=== PATIENT | female | born 1955 | race Caucasian/White ===

== ENCOUNTER → 2016-07-14 | Outpatient (CLI) | payer BC ==
[2016-07-14 15:37] LABS: CH 32.6; CHCM 33.6; HCT 42.8 % (34.0-46.0); HDW 2.71; HGB 13.9 gm/dL (11.4-16.0); MCH 31.6 pg (25.0-35.0); MCHC 32.4 g/dL (31.0-37.0); MCV 97.6 fL (80.0-100.0); Mean Platelet Volume 6.6; RBC 4.39 m/uL (3.80-5.40); RDW 13.9 % (11.5-15.5); WBC 6.3 k/uL (3.8-10.6)
[2016-07-14 15:51] LABS: ALT 46 U/L (9-52); AST 26 U/L (14-36); Alkaline Phosphatase 76 U/L (38-126); Amylase 43 U/L (30-110); Anion Gap 9 mmol/L; Blood Urea Nitrogen 15 mg/dL (7-17); Calcium 9.2 mg/dL (8.4-10.2); Carbon Dioxide 23 mmol/L (22-30); Chloride 108 mmol/L (98-107); Glucose 101 mg/dL (74-99); Non-African American GFR(MDRD) 59 (>60 ml/min/1.73 sqM); Potassium 3.5 mmol/L (3.5-5.1); Sodium 140 mmol/L (137-145); Total Bilirubin 0.9 mg/dL (0.2-1.3); Total Protein 7.1 g/dL (6.3-8.2)
== END | disposition home or self-care (01) ==
LOC: LABWHC1 15:15
PROVIDERS: ATTEND Family Medicine
DX: K56.7 Ileus, unspecified (principal)
CPT/HCPCS: 36415; 80053; 82150; 83690; 85027

== ENCOUNTER → 2016-07-14 | Outpatient (CLI) | payer BC ==
--- NOTE | 2016-07-14 15:49 | XR ---
EXAMINATION TYPE: XR abdomen complete w decub DATE OF EXAM: 07/14/2016 3:44 PM COMPARISON: NONE HISTORY: Generalized abdominal pain doubling over in pain central TECHNIQUE: Upright supine and left lateral decubitus views of the abdomen are obtained. FINDINGS: Nonspecific bowel gas is present within small bowel loops as well as the colon. On upright views there are multiple air-fluid levels present. No suspicious differential air-fluid levels are pr esent. No mass effect is evident. Psoas margins are normal. No free air is identified. Organomegaly i s not evident. No suspicious calcifications are evident. IMPRESSION: 1. Nonspecific abdomen with multiple air-fluid levels within loops of bowel. Consider gastroenteriti s within the differential.
== END ==
LOC: RADXRMAIN 15:25
PROVIDERS: ATTEND Family Medicine
DX: R10.9 Unspecified abdominal pain (principal)
CPT/HCPCS: 74020

== ENCOUNTER → 2017-01-05 | Outpatient (CLI) | payer BC ==
--- NOTE | 2017-01-05 15:19 | US ---
EXAMINATION TYPE: US venous doppler duplex LE LT DATE OF EXAM: 01/05/2017 2:12 PM COMPARISON: NONE CLINICAL HISTORY: R60.0 LEFT PRETIBIAL REGION. Redness, itching left lower leg. Pain left leg. Left k nee cartilage fracture 04/22 SIDE PERFORMED: Left TECHNIQUE: The lower extremity deep venous system is examined utilizing real time linear array sonog eliot with graded compression, doppler sonography and color-flow sonography. VESSELS IMAGED: External Iliac Vein (EIV) Common Femoral Vein Deep Femoral Vein Greater Saphenous Vein * Femoral Vein Popliteal Vein Small Saphenous Vein * Proximal Calf Veins (* superficial vessels) Left Leg: No evidence of DVT Grayscale, color doppler, spectral doppler imaging performed of the deep veins of the left lower extr emity. There is normal flow, compressibility, vascular waveforms. IMPRESSION: No ultrasound evidence for acute DVT in the left lower extremity.
== END | disposition home or self-care (01) ==
LOC: RADUSWWP 13:39
DX: R60.0 Localized edema (principal)

== ENCOUNTER 2017-10-22 14:32 | Emergency (ER) | payer BC ==
[2017-10-22 14:46] VITALS: RESP 20
[2017-10-22] MEDS ORDERED: KETOROLAC 60 MG/2 ML VIAL IM STA (14:59)
--- NOTE | 2017-10-22 14:59 | ED ---
Extremity Problem HPI - General Chief complaint: Extremity Problem,Nontraumatic Stated complaint: Knee Pain Time Seen by Provider: 10/22/17 14:50 Source: patient Mode of arrival: wheelchair Limitations: no limitations - History of Present Illness Initial comments: This is 62 year female with past medical history of extensive right knee arthritis for which she follows Dr. Montelongo, patient has drainage of right knee effusion last month. Patient states that this morning she was with her 11:30 AM she notes a raised area that was tender to touch along the right calf along the medial aspect, addition she thought that she had increase right lower extremities swelling in comparison to baseline. The tenderness increased with weightbearing and with dorsi or plantar flexion of the ankle. Patient sates that since she has been suffering from right knee arthritis and had previous right ankle injury she has had chronic swelling of the right knee and of the right ankle. Her orthopedic doctor Dr. Montelongo states that she needs a total knee arthroplasty. She has an appointment with him tomorrow. However she was worried about a blood clot in the calf, due to increased swelling of the right leg in the raised area that she presented to the emergency department today. Upon arrival she is Stable, heart rate 80 with 100% oxygen saturation RA. Patient denies any new pain in the knee, erythema of the right knee joint, recent trauma or injury to the leg, recent travel on an airplane or extended time of immobilization, history of cancer, use of estrogen, paresthesias, numbness, tingling or loss sensation of right lower extremity, patient denies chest pain, shortness of breath, recent cough, hemoptysis. Patient denies any recent fever, chills, back pain, abdominal pain, nausea or vomiting, numbness or tingling, dysuria or hematuria, constipation or diarrhea, headaches or visual changes, or any other complaints. - Related Data Home Medications Medication Instructions Recorded Confirmed ALPRAZolam [Xanax] 1 mg PO Q8HR PRN 02/19/16 10/22/17 Atorvastatin [Lipitor] 40 mg PO HS 02/19/16 10/22/17 Citalopram Hydrobromide [CeleXA] 60 mg PO HS 02/19/16 10/22/17 Levothyroxine Sodium [Synthroid] 75 mcg PO DAILY 02/19/16 10/22/17 Topiramate [Topamax] 100 mg PO BID 02/19/16 10/22/17 ZOLMitriptan [Zomig] 5 mg PO DAILY PRN 02/19/16 10/22/17 buPROPion SR [Wellbutrin Sr] 150 mg PO BID 02/19/16 10/22/17 Albuterol Sulfate [Proventil Hfa] 1 - 2 puff INHALATION RT-Q6H PRN 10/22/17 Butalb/APAP/Caff 50-325-40Mg 1 tab PO DAILY PRN 10/22/17 10/22/17 [Fioricet 50-325-40] Omeprazole [PriLOSEC] 40 mg PO HS 10/22/17 10/22/17 Allergies Allergy/AdvReac Type Severity Reaction Status Date / Time No Known Allergies Allergy Verified 10/22/17 14:51 Review of Systems ROS Statement: Those systems with pertinent positive or pertinent negative responses have been documented in the HPI. ROS Other: All systems not noted in ROS Statement are negative. Constitutional: Denies: fever, chills ENT: Denies: ear pain, throat pain Respiratory: Denies: cough, dyspnea, wheezes, hemoptysis Cardiovascular: Denies: chest pain, palpitations, dyspnea on exertion, orthopnea Gastrointestinal: Denies: abdominal pain, nausea, vomiting, diarrhea, constipation Genitourinary: Denies: urgency, dysuria Musculoskeletal: Denies: back pain Skin: Reports: as per HPI Neurological: Denies: headache, weakness, numbness, paresthesias, confusion Past Medical History Past Medical History: Eye Disorder, Hyperlipidemia, Neurologic Disorder, Thyroid Disorder Additional Past Medical History / Comment(s): BILAT CATARACTS. MIGRAINES. PNUEMONIA History of Any Multi-Drug Resistant Organisms: None Reported Past Surgical History: Section, Hysterectomy, Tonsillectomy Additional Past Surgical History / Comment(s): COLONOSCOPY Past Anesthesia/Blood Transfusion Reactions: No Reported Reaction Past Psychological History: Anxiety, Depression Smoking Status: Never smoker Past Alcohol Use History: None Reported Past Drug Use History: None Reported - Past Family History Father Family Medical History: Cancer General Exam - General Exam Comments Initial Comments: General: The patient is awake and alert, in no distress, and does not appear acutely ill. Eye: Pupils are equal, round and reactive to light, extra-ocular movements are intact. No nystagmus. There is normal conjunctiva bilaterally. No signs of icterus. Ears, nose, mouth and throat: There are moist mucous membranes and no oral lesions. Neck: The neck is supple, there is no tenderness or JVD. Cardiovascular: There is a regular rate and rhythm. No murmur, rub or gallop is appreciated. Respiratory: Lungs are clear to auscultation, respirations are non-labored, breath sounds are equal. No wheezes, stridor, rales, or rhonchi. Gastrointestinal: [Soft, non-distended, non-tender abdomen without masses or organomegaly noted. There is no rebound or guarding present. No CVA tenderness. Bowel sounds are unremarkable.] Musculoskeletal: Normal ROM, no tenderness of the right knee. Strength 5/5 of the right knee join. Sensation intact of the rt lower extremity equally b/l. DP pulses equal bilaterally 2+. Neurological: A&O x 3. CN II-XII intact, There are no obvious motor or sensory deficits. Coordination appears grossly intact. Speech is normal. Skin: Skin is warm and dry and no rashes or lesions are noted. There is no obvious raised area of the right medial calf upon examination, no evidence of erythema, pt is tender to palpation over the right medial posterior calf. Positive Serafin. Full range of motion and strength of the ankle. Psychiatric: Cooperative, appropriate mood & affect, normal judgment. Limitations: no limitations Course Vital Signs 10/22/17 10/22/17 14:44 16:30 Temperature 96.5 F L 96.4 F L Pulse Rate 80 69 Respiratory 20 20 Rate Blood Pressure 144/71 116/64 O2 Sat by Pulse 100 99 Oximetry Medical Decision Making - Medical Decision Making 62-year-old female with past medical history of extensive right knee arthritis for which she follows with cyber security specialist Dr. Montelongo. Patient was worried about a possible right lower cavity blood clot. Ultrasound was obtained of the right lower extremity- this returned negative. Due to history and patient denying any changes in her chronic right knee pain, no new trauma or fall, vital signs within normal limits, and negative duplex ultrasound of the right lower extremity I have low suspicion for DVT, acute fracture or process. I discussed the case with Dr. Canales the case in detail. At this time we do feel patient is stable for discharge with f/u with Dr. Montelongo tomorrow as scheduled. Patient was instructed to return to the emergency department if symptoms worsen or change. Patient is happy with plan and is ready to be discharged. Patient discharged in stable condition. Disposition Clinical Impression: Pain in right lower leg Disposition: HOME SELF-CARE Condition: Good Instructions: Leg Pain (ED) Additional Instructions: Please follow-up with Dr. Montelongo as discussed. Please return to emergency room if the symptoms increase or worsen or for any other concerns. Is patient prescribed a controlled substance at d/c from ED?: No Referrals: Kennedy Nj DO [Primary Care Provider] - 1-2 days Time of Disposition: 16:30
--- NOTE | 2017-10-22 16:02 | US ---
EXAMINATION TYPE: US venous doppler duplex LE LT DATE OF EXAM: 10/22/2017 3:48 PM COMPARISON: NONE CLINICAL HISTORY: Pain. SIDE PERFORMED: Left TECHNIQUE: The lower extremity deep venous system is examined utilizing real time linear array sonog eliot with graded compression, doppler sonography and color-flow sonography. VESSELS IMAGED: External Iliac Vein (EIV) Common Femoral Vein Deep Femoral Vein Greater Saphenous Vein * Femoral Vein Popliteal Vein Small Saphenous Vein * Proximal Calf Veins (* superficial vessels) Grayscale, color doppler, spectral doppler imaging performed of the deep veins of the left lower extr emity. There is normal flow, compressibility, vascular waveforms. Left Leg: Negative for DVT IMPRESSION: No sonographic evidence of deep venous thrombosis within the left lower extremity.
[2017-10-22 16:31] VITALS: BP 116/64; PULSE 69; TEMP 96.4
== END 2017-10-22 16:34 | disposition home or self-care (01) ==
LOC: EC 14:32
DX: M79.661 Pain in right lower leg (principal); G89.29 Other chronic pain; M25.561 Pain in right knee; E78.5 Hyperlipidemia, unspecified; E07.9 Disorder of thyroid, unspecified; F32.9 Major depressive disorder, single episode, unspecified; Z86.69 Personal history of other diseases of the nervous system and sense organs; Z79.899 Other long term (current) drug therapy
CPT/HCPCS: 96372; 99283

== ENCOUNTER 2018-10-21 18:14 | Emergency (ER) | payer MEDICARE, BC ==
[2018-10-21 18:50] VITALS: BP 118/78; PULSE 63; RESP 18; TEMP 98.3
--- NOTE | 2018-10-21 20:07 | ED ---
Extremity Problem HPI - General Source: patient Mode of arrival: ambulatory Limitations: no limitations <Galdino Benson - Last Filed: 10/21/18 21:30> <Uvaldo Kc - Last Filed: 10/21/18 22:05> - General Chief complaint: Extremity Problem,Nontraumatic Stated complaint: Poss DVT Time Seen by Provider: 10/21/18 19:11 - History of Present Illness Initial comments: Patient is 63-year-old female presents emergency Department with left leg pain. Patient reports she had a meniscal repair approximately one week ago when today was her second day palpation physical therapy. Patient reports when she applied warm compresses to her left lower leg she developed sudden onset of pain. Patient reports she was sent to emergency department by the equal opportunity specialist who is suspecting a possible DVT. Patient reports her last Doppler ultrasound for DVT was a false negative. Patient does have a history of previou s DVTs. Patient does report pain along the posterior aspect of the left lower leg. Patient also reports mild swelling in the region as well. Patient does report taking [place] approximately 1 hour ago prior comment to the emergency department. Patient reports the pain is exacerbated with dorsiflexion and alleviated at rest. Patient denies chest tightness, shortness of breath, hemoptysis, recent chemotherapy or exogenous estrogen use. (Galdino Benson) - Related Data Home Medications Medication Instructions Recorded Confirmed ALPRAZolam [Xanax] 1 mg PO Q8HR PRN 02/19/16 10/22/17 Atorvastatin [Lipitor] 40 mg PO HS 02/19/16 10/22/17 Citalopram Hydrobromide [CeleXA] 60 mg PO HS 02/19/16 10/22/17 Levothyroxine Sodium [Synthroid] 75 mcg PO DAILY 02/19/16 10/22/17 Topiramate [Topamax] 100 mg PO BID 02/19/16 10/22/17 ZOLMitriptan [Zomig] 5 mg PO DAILY PRN 02/19/16 10/22/17 buPROPion SR [Wellbutrin Sr] 150 mg PO BID 02/19/16 10/22/17 Albuterol Sulfate [Proventil Hfa] 1 - 2 puff INHALATION RT-Q6H PRN 10/22/17 10/22/17 Butalb/APAP/Caff 50-325-40Mg 1 tab PO DAILY PRN 10/22/17 10/22/17 [Fioricet 50-325-40] Omeprazole [PriLOSEC] 40 mg PO HS 10/22/17 10/22/17 Previous Rx's Medication Instructions Recorded Apixaban [Eliquis Starter Pack 0 mg PO DIRECTED 30 Days #1 pack 10/21/18 (for VTE)] Allergies Allergy/AdvReac Type Severity Reaction Status Date / Time No Known Allergies Allergy Verified 10/22/17 14:51 Review of Systems ROS Other: All systems not noted in ROS Statement are negative. <Galdino Benson - Last Filed: 10/21/18 21:30> ROS Other: All systems not noted in ROS Statement are negative. <Uvaldo Kc - Last Filed: 10/21/18 22:05> ROS Statement: Those systems with pertinent positive or pertinent negative responses have been documented in the HPI. Past Medical History Past Medical History: Deep Vein Thrombosis (DVT), Eye Disorder, Hyperlipidemia, Neurologic Disorder, Thyroid Disorder Additional Past Medical History / Comment(s): BILAT CATARACTS. MIGRAINES History of Any Multi-Drug Resistant Organisms: None Reported Past Surgical History: Section, Hernia Repair, Hysterectomy, Orthopedic Surgery, Tonsillectomy Additional Past Surgical History / Comment(s): COLONOSCOPY, knee Past Anesthesia/Blood Transfusion Reactions: No Reported Reaction Past Psychological History: Anxiety, Depression Smoking Status: Never smoker Past Alcohol Use History: None Reported Past Drug Use History: None Reported - Past Family History Father Family Medical History: Cancer <Galdino Benson - Last Filed: 10/21/18 21:30> General Exam Limitations: no limitations General appearance: alert, in no apparent distress Head exam: Present: atraumatic, normocephalic, normal inspection Eye exam: Present: normal appearance, PERRL, EOMI Pupils: Present: normal accommodation ENT exam: Present: normal exam, normal oropharynx, mucous membranes moist, TM's normal bilaterally, normal external ear exam Neck exam: Present: normal inspection, full ROM Respiratory exam: Present: normal lung sounds bilaterally Cardiovascular Exam: Present: regular rate, normal rhythm, normal heart sounds Extremities exam: Present: normal inspection, tenderness, normal capillary refill, joint swelling (Left knee swelling), calf tenderness (Positive Homans on the left leg), other (+2 dorsalis pedis and posterior tibialis bilaterally). Absent: full ROM (Limited range of motion due to recent meniscal repair procedure) Back exam: Present: normal inspection, full ROM Neurological exam: Present: alert, oriented X3 Psychiatric exam: Present: normal affect, normal mood Skin exam: Present: warm, intact, normal color <Galdino Benson - Last Filed: 10/21/18 21:30> Course Vital Signs 10/21/18 18:46 Temperature 98.3 F Pulse Rate 63 Respiratory 18 Rate Blood Pressure 118/78 O2 Sat by Pulse 100 Oximetry Medical Decision Making <Galdino Benson - Last Filed: 10/21/18 21:30> <Uvaldo Kc - Last Filed: 10/21/18 22:05> - Medical Decision Making Patient is a 63-year-old male presenting to emergency Department with leg pain. Venous Doppler of the left lower extremity was obtained. Imaging results indicate a 41.5 cm popliteal cyst. The deep femoral vein was not able to be fully compressed so at this time a nonocclusive thrombus cannot be ruled out. Rest of imaging is unremarkable. Considering the patient's previous history for DVTs she will be treated accordingly. Patient was given the option to stay for inpatient treatment with heparin or be discharged with a liquids. Patient states that she has an appointment on the Dr. Loyd tomorrow and she wants to be discharged. Patient was given 10 mg of Eliquis and will be discharged with a starter pack. Strict return parameters were thoroughly discussed with patient who is understanding and agreeable. also examine the patient and is in agreement with the treatment plan. (Galdino Benson) I saw this patient in conjunction with the physician certified ophthalmic assistant. I performed independent history and physical exam. Agree with case management. Case also discussed with Dr. Nj and patient will follow-up to ensure that there is improvement. (Uvaldo Kc) Disposition Is patient prescribed a controlled substance at d/c from ED?: No Time of Disposition: 21:34 <Galdino Benson - Last Filed: 10/21/18 21:30> <Uvaldo Kc - Last Filed: 10/21/18 22:05> Clinical Impression: Lower extremity pain, posterior Disposition: HOME SELF-CARE Condition: Stable Additional Instructions: Please take prescribed medication as directed. Please follow-up with a vascular surgeon. Please return to emergency department if symptoms worsen. Prescriptions: Apixaban [Eliquis Starter Pack (for VTE)] 0 mg PO DIRECTED 30 Days #1 pack Referrals: Kennedy Nj DO [Primary Care Provider] - 1-2 days
--- NOTE | 2018-10-21 21:01 | US ---
EXAMINATION TYPE: US venous doppler duplex LE LT DATE OF EXAM: 10/21/2018 8:48 PM COMPARISON: US CLINICAL HISTORY: Pain. Knee surgery 10/15/18. Pain. Hx DVT. Pt takes baby aspirin. SIDE PERFORMED: Left TECHNIQUE: The lower extremity deep venous system is examined utilizing real time linear array sonog eliot with graded compression, doppler sonography and color-flow sonography. VESSELS IMAGED: External Iliac Vein (EIV) Common Femoral Vein Deep Femoral Vein Greater Saphenous Vein * Femoral Vein Popliteal Vein Small Saphenous Vein * Proximal Calf Veins (* superficial vessels) Left Leg: Patient could not tolerate complete compression at the level of the proximal femoral vein and deep femoral vein. Unable to fully compress the deep femoral vein at this level (Prox femoral vei n did compress). Cannot rule out non-occlusive thrombus in deep femoral vein. No evidence of DVT in o ther remaining vessels imaged from proximal calf veins to EIV. Hypoechoic area seen medial left knee measurin.1 x 2.8 x 1.5 cm. IMPRESSION: There is 4 x 1.5 cm popliteal cyst. No definite evidence for deep venous thrombosis.
[2018-10-21] MEDS ORDERED: APIXABAN 5 MG TAB PO STA (21:23)
== END 2018-10-21 22:00 | disposition home or self-care (01) ==
LOC: EC 18:14
CPT/HCPCS: 99283

== ENCOUNTER 2019-08-30 10:33 | Emergency (ER) | payer MEDICARE, BC ==
[2019-08-30 10:45] VITALS: BP 113/64; PULSE 96; RESP 18; TEMP 98.7
--- NOTE | 2019-08-30 11:06 | ED ---
General Adult HPI - General Chief complaint: Extremity Injury, Lower Stated complaint: blood clot Time Seen by Provider: 08/30/19 10:46 Source: patient Mode of arrival: ambulatory Limitations: no limitations - History of Present Illness Initial comments: Patient is 64-year-old female with history of DVT presenting to the emergency department with a chief complaint of a blood clot. He states due to her history of DVTs, she suspecting a DVT in her left lower extremity. States it typically starts off as a rash and swelling along with pain in the medial and anterior aspect. Denies any chest pain or shortness of breath. States she is currently not taking blood thinners or antiplatelets. States after her most recent DVT, she was started on Eliquis but was tapered off of it. Denies any night sweats fevers or chills. No history of PE. - Related Data Home Medications Medication Instructions Recorded Confirmed ALPRAZolam [Xanax] 1 mg PO Q8HR PRN 02/19/16 10/22/17 Atorvastatin [Lipitor] 40 mg PO HS 02/19/16 10/22/17 Citalopram Hydrobromide [CeleXA] 60 mg PO HS 02/19/16 10/22/17 Levothyroxine Sodium [Synthroid] 75 mcg PO DAILY 02/19/16 10/22/17 Topiramate [Topamax] 100 mg PO BID 02/19/16 10/22/17 ZOLMitriptan [Zomig] 5 mg PO DAILY PRN 02/19/16 10/22/17 buPROPion SR [Wellbutrin Sr] 150 mg PO BID 02/19/16 10/22/17 Albuterol Sulfate [Proventil Hfa] 1 - 2 puff INHALATION RT-Q6H PRN 10/22/17 10/22/17 Butalb/APAP/Caff 50-325-40Mg 1 tab PO DAILY PRN 10/22/17 10/22/17 [Fioricet 50-325-40] Omeprazole [PriLOSEC] 40 mg PO HS 10/22/17 10/22/17 Previous Rx's Medication Instructions Recorded Apixaban [Eliquis Starter Pack 0 mg PO DIRECTED 30 Days #1 pack 10/21/18 (for VTE)] Cephalexin [Keflex] 500 mg PO Q6HR #28 cap 08/30/19 Allergies Allergy/AdvReac Type Severity Reaction Status Date / Time No Known Allergies Allergy Verified 08/30/19 10:45 Review of Systems ROS Statement: Those systems with pertinent positive or pertinent negative responses have been documented in the HPI. ROS Other: All systems not noted in ROS Statement are negative. Past Medical History Past Medical History: Deep Vein Thrombosis (DVT), Eye Disorder, Hyperlipidemia, Neurologic Disorder, Thyroid Disorder Additional Past Medical History / Comment(s): BILAT CATARACTS. MIGRAINES History of Any Multi-Drug Resistant Organisms: None Reported Past Surgical History: Section, Hernia Repair, Hysterectomy, Orthopedic Surgery, Tonsillectomy Additional Past Surgical History / Comment(s): COLONOSCOPY, knee Past Anesthesia/Blood Transfusion Reactions: No Reported Reaction Past Psychological History: Anxiety, Depression Smoking Status: Never smoker Past Alcohol Use History: None Reported Past Drug Use History: None Reported - Past Family History Father Family Medical History: Cancer General Exam Limitations: no limitations General appearance: alert, in no apparent distress Head exam: Present: atraumatic, normocephalic, normal inspection Eye exam: Present: normal appearance, PERRL, EOMI Pupils: Present: normal accommodation ENT exam: Present: normal exam, normal oropharynx, mucous membranes moist Neck exam: Present: normal inspection, full ROM Respiratory exam: Present: normal lung sounds bilaterally Cardiovascular Exam: Present: regular rate, normal rhythm, normal heart sounds Extremities exam: Present: full ROM, tenderness (Tenderness on the left calf.), normal capillary refill, pedal edema (+1 nonpitting), calf tenderness (Positive Homans sign lower extremity). Absent: normal inspection (Overlying cellulitic changes on the left lower extremity.), joint swelling Back exam: Present: normal inspection, full ROM Neurological exam: Present: alert, oriented X3 Psychiatric exam: Present: normal affect, normal mood Skin exam: Present: warm, dry, intact, normal color Course Vital Signs 08/30/19 10:40 Temperature 98.7 F Pulse Rate 96 Respiratory 18 Rate Blood Pressure 113/64 O2 Sat by Pulse 97 Oximetry Medical Decision Making - Medical Decision Making Patient is 64-year-old female with history of DVT presenting to the emergency department with a chief complaint of possible blood clot. I exam patient is a positive Homans sign along with left lower extremity swelling. There also appears to be a rash with overlying cytolytic changes which I suspect a cellulitis. There is erythema associated with it as well. Doppler ultrasound revealed a small size popliteal cyst but no signs of a DVT. Patient started on Keflex in the ED. Will be discharged with a seven-day course of Keflex. Advised the patient to take Benadryl to help with itching. I also luz elena a line along the demarcated borders and advised the patient to return to emergency department if the infection continues past the demarcated line. Return parameters thoroughly discussed with patient was up standing and agreeable. Case discussed with physician. Disposition Clinical Impression: Cellulitis of left leg, Left leg swelling, Left leg pain Disposition: HOME SELF-CARE Instructions (If sedation given, give patient instructions): Cellulitis (DC) Additional Instructions: Take prescribed medication as directed. Alternate between Tylenol and Motrin for pain control. Take Benadryl for itching. Return to emergency department if symptoms worsen. Prescriptions: Cephalexin [Keflex] 500 mg PO Q6HR #28 cap Is patient prescribed a controlled substance at d/c from ED?: No Referrals: Kennedy Nj DO [Primary Care Provider] - 1-2 days Time of Disposition: 13:05
--- NOTE | 2019-08-30 12:23 | US ---
EXAMINATION TYPE: US venous doppler duplex LE LT DATE OF EXAM: 08/30/2019 12:17 PM COMPARISON: Prior left lower extremity venous ultrasound October 21, 2018 CLINICAL HISTORY: r/o dvt, swelling, hx of dvt. SIDE PERFORMED: Left TECHNIQUE: The lower extremity deep venous system is examined utilizing real time linear array sonog eliot with graded compression, doppler sonography and color-flow sonography. VESSELS IMAGED: External Iliac Vein (EIV) Common Femoral Vein Deep Femoral Vein Greater Saphenous Vein * Femoral Vein Popliteal Vein Small Saphenous Vein * Proximal Calf Veins (* superficial vessels) Left Leg: Negative for DVT De La Torre's cyst measuring 2.4 x 1.7 x 1.5cm Grayscale, color doppler, spectral doppler imaging performed of the deep veins of the left lower extr emity. There is normal flow, compressibility, vascular waveforms. IMPRESSION: No ultrasound evidence for acute DVT in left lower extremity. Redemonstration of small s ize popliteal cyst towards end of study. No significant change from prior ultrasound.
[2019-08-30] MEDS ORDERED: CEPHALEXIN 500 MG CAP PO STA (13:04)
== END 2019-08-30 13:15 | disposition home or self-care (01) ==
LOC: EC 10:33
DX: L03.116 Cellulitis of left lower limb (principal); M79.89 Other specified soft tissue disorders; M71.22 Synovial cyst of popliteal space [Baker], left knee; F41.9 Anxiety disorder, unspecified; F32.9 Major depressive disorder, single episode, unspecified; E78.5 Hyperlipidemia, unspecified; Z79.890 Hormone replacement therapy; Z79.899 Other long term (current) drug therapy; Z86.718 Personal history of other venous thrombosis and embolism
CPT/HCPCS: 99283

== ENCOUNTER → 2020-08-10 | Outpatient (CLI) | payer MEDICARE ==
--- NOTE | 2020-08-13 08:52 | MM ---
Reason for exam: clinical finding. Last mammogram was performed 11 years and 2 months ago. History: Family history of breast cancer in brother at age 50. Indicated problem(s): palpable abnormality in the right breast. Physical Findings: Nurse did not find any significant physical abnormalities on exam. MG 3D Diag Mammo W/Cad NIYA Bilateral CC and MLO view(s) were taken. CC with magnification and LM with magnification view(s) were taken of the right breast. No prior studies available for comparison. The breast tissue is heterogeneously dense. This may lower the sensitivity of mammography. Finding: There are coarse heterogeneous, grouped/clustered calcifications in the lower inner quadrant, anterior, subareolar position of the right breast 3cm from the nipple. These results were verbally communicated with the patient and result sheet given to the patient on 08/10/20. ASSESSMENT: Incomplete: need additional imaging evaluation, BI-RAD 0 RECOMMENDATION: Ultrasound of the right breast. (palpable)
--- NOTE | 2020-08-13 08:55 | USB ---
Reason for exam: additional evaluation requested from abnormal screening. History: Family history of breast cancer in brother at age 50. US Breast Limited RT Right limited breast ultrasound including focal area of concern, retroareolar and axilla demonstrates a 0.5 x 0.5 x 0.4cm round, solid, hypoechoic lesion at 7 o'clock. Biopsy recommended. These results were verbally communicated with the patient and result sheet given to the patient on 08/10/20. ASSESSMENT: Suspicious, BI-RAD 4 RECOMMENDATION: Stereotactic core biopsy of the right breast. (right breast calcifications) Ultrasound core biopsy of the right breast. (7 o'clock) Called Dr. Nj' office with mammographic findings and has scheduled an appointment for the patient for 10/10/[address] Sethi. Steretactic core biopsy scheduled for 09/10/20 at 8:00. Ultrasound core biopsy scheduled for 09/17/20 at 1:00. PRELIMINARY REPORT CALLED AND FAXED TO DR. SETHI ON 08/13/20.
== END | disposition home or self-care (01) ==
LOC: RADMAMWWP 08:17
PROVIDERS: ATTEND Family Medicine
DX: R92.1 Mammographic calcification found on diagnostic imaging of breast (principal); N64.89 Other specified disorders of breast; Z80.3 Family history of malignant neoplasm of breast
CPT/HCPCS: 77066; 76642; G0279; 77062

== ENCOUNTER → 2020-09-10 | Day surgery (SDC) | payer MEDICARE ==
[2020-09-10 07:28] VITALS: RESP 16
[2020-09-10 08:55] VITALS: BP 116/74; PULSE 65; TEMP 98.5
--- NOTE | 2020-09-10 15:36 | MM ---
EXAMINATION TYPE: MG stereo VAD BX RT DATE OF EXAM: 09/10/2020 COMPARISON: 08/10/2020 CLINICAL HISTORY: 65-year-old female r92.8, abnormal mammogram TECHNIQUE: Stereotactic guided core biopsy of the right breast calcifications. FINDINGS: The procedure of stereotactic guided core biopsy was explained to the patient. Benefits, alternatives, and risks were discussed. An informed consent was then obtained. [facility] Shortness pathway was a medial approach. I performed the localization localization followed with the remainder of the procedure. A vacuum assisted biopsy gun was used to obtain 4 core samples. The patient tolerated the procedure well without any immediate complication. The patient was kept in the radiology department for short stay after the procedure and then discharged home in stable condition. Targeted calcifications are identified in specimen mammogram. Post biopsy mammogram shows the clip to appear in satisfactory position relative to the targeted area of concern on the preprocedure images at the 3 to 4:00 position anterior depth right breast. Mild associated hematoma formation on the lateral view. IMPRESSION: 1. SUCCESSFUL, UNCOMPLICATED STEREOTACTIC GUIDED CORE BIOPSY OF INDETERMINATE CALCIFICATIONS IN THE 3-4 o'clock right BREAST, FULL PATHOLOGY RESULTS TO FOLLOW. RECOMMENDATION: 1. Awaiting stereotactic core needle biopsy pathology results. 2. Awaiting ultrasound core needle biopsy of the 7:00 right breast palpable sonographic correlate to be performed next week. Pathology Results: Benign RIGHT BREAST, CORE BIOPSY: Fibrocystic change with fragmented benign cystic structures, benign cyst contents, parenchymal hemorrhage and mild periductal chronic inflammation. Negative for in situ or invasive malignancy. ADDENDUM REPORT The purpose of this addendum report is to state that focal microcalcifications were identified from the patient's right breast core biopsy. The remainder of the diagnostic findings remain unchanged. Recommendation Follow up mammogram of the left breast in 6 months. EUGENIA
== END ==
LOC: RADMAMWWP 07:04
PROVIDERS: ATTEND Surgery
DX: N60.11 Diffuse cystic mastopathy of right breast (principal); R92.8 Other abnormal and inconclusive findings on diagnostic imaging of breast
CPT/HCPCS: 88305; 19081; A4648; J2001

== ENCOUNTER → 2020-09-17 | Day surgery (SDC) | payer MEDICARE ==
[2020-09-17 12:30] VITALS: BP 114/78; PULSE 78; RESP 16; TEMP 98.9
--- NOTE | 2020-09-17 15:05 | USB ---
EXAMINATION TYPE: US biopsy breast VAD RT, MG diagnostic mammo RT wo CAD DATE OF EXAM: 09/17/2020 CLINICAL HISTORY: R92.8 Abnormal mammo. TECHNIQUE: Ultrasound guided core biopsy of right breast. COMPARISON: 08/10/2020 FINDINGS: The procedure of ultrasound guided core biopsy was explained to the patient. Benefits, alternatives, and risks were discussed. An informed consent was then obtained. The patient was placed in supine positioning for imaging and for the procedure. The overlying skin was prepped and draped in usual sterile fashion. Lidocaine buffered with bicarbonate was used as anesthetic into the skin and subcutaneous tissue up to area of concern in the right breast. A silverio was made with surgical scalpel. Under ultrasound guidance, a 12-gauge vacuum assisted biopsy gun device was used to obtain 3 core samples. The lesion was then no longer visible. Following this, a biopsy clip was placed in the lesion under direct sonographic guidance. The patient tolerated the procedure well without any immediate complication. The patient was kept in the radiology department for short stay after the procedure and then discharged home in stable condition. Postoperative right mammogram was performed which demonstrates a biopsy clip in the anterior right breast. IMPRESSION: Successful, uncomplicated ultrasound guided core biopsy of area of concern in the right breast, full pathology results to follow. Pathology Results: Benign RIGHT BREAST, 7:00, ULTRASOUND GUIDED CORE BIOPSY: Cyst wall with adjacent fat necrosis/scar and inflammation. Negative for malignancy. Recommendation Follow up mammogram and ultrasound of the right breast in 6 months. EUGENIA
== END ==
LOC: RADUSWWP 12:06
PROVIDERS: ATTEND Surgery
DX: N60.01 Solitary cyst of right breast (principal); R92.8 Other abnormal and inconclusive findings on diagnostic imaging of breast
CPT/HCPCS: 88305; 77065; 19083; A4648; J2001

== ENCOUNTER 2021-05-20 10:31 | Emergency (ER) | payer MEDICARE ==
[2021-05-20] MEDS ORDERED: LORazepam 2 MG/ML INJ IV STA (10:59)
[2021-05-20 11:05] VITALS: RESP 18; TEMP 97.8
[2021-05-20] MEDS ORDERED: LORazepam 2 MG/ML INJ IM STA (11:11)
--- NOTE | 2021-05-20 11:35 | US ---
EXAMINATION TYPE: US venous doppler duplex LE LT DATE OF EXAM: 05/20/2021 11:28 AM COMPARISON: Prior left lower extremity venous ultrasound August 30, 2019 CLINICAL HISTORY: pain. patient having panic attack, had total lt knee 2 weeks ago and has cramping/s pasms in her left calf, h/o dvt in left leg 3 years ago, on thinners SIDE PERFORMED: Left TECHNIQUE: The lower extremity deep venous system is examined utilizing real time linear array sonog eliot with graded compression, doppler sonography and color-flow sonography. VESSELS IMAGED: Common Femoral Vein Deep Femoral Vein Greater Saphenous Vein * Femoral Vein Popliteal Vein Small Saphenous Vein * Proximal Calf Veins (* superficial vessels) Left Leg: Negative for DVT unable to do compression imaging in thigh or behind knee because patien t could not tolerate any pressure. Good color flow with doppler noted throughout leg. Grayscale, color doppler, spectral doppler imaging performed of the deep veins of the left lower extr emity. There is normal flow, compressibility, vascular waveforms. IMPRESSION: Suboptimal study but No convincing ultrasound evidence for acute DVT in the left lower e xtremity.
[2021-05-20 11:59] VITALS: BP 131/73; PULSE 93
--- NOTE | 2021-05-20 12:10 | ED ---
Anxiety HPI - General Chief Complaint: Anxiety Stated Complaint: anxiety Time Seen by Provider: 05/20/21 10:52 Source: patient, EMS, RN notes reviewed Mode of arrival: EMS Limitations: no limitations - History of Present Illness Initial Comments: This a 66-year-old female presents emergency department via EMS from [facility] for panic attack. Patient started feeling very anxious, like her heart was racing, uneasiness. Patient states that she productive presents this morning. Patient was screaming, hyperventilating upon arrival EMS and which they did calm her down. She is patient's back but again started having symptoms emergency department she denies any pain she states that she is not crazy that she just forgot to take her Xanax. There is no nausea vomiting patient states that she had knee surgery two week ago. - Related Data Home Medications: Home Medications Medication Instructions Recorded Confirmed ALPRAZolam [Xanax] 1 mg PO Q8HR 02/19/16 09/17/20 Atorvastatin [Lipitor] 40 mg PO HS 02/19/16 09/17/20 Citalopram Hydrobromide [CeleXA] 60 mg PO HS 02/19/16 09/17/20 Levothyroxine Sodium [Synthroid] 75 mcg PO DAILY 02/19/16 09/17/20 Topiramate [Topamax] 100 mg PO BID 02/19/16 09/17/20 ZOLMitriptan [Zomig] 5 mg PO DAILY PRN 02/19/16 09/17/20 buPROPion SR [Wellbutrin Sr] 150 mg PO BID 02/19/16 09/17/20 Albuterol Sulfate [Proventil Hfa] 1 - 2 puff INHALATION RT-Q6H PRN 10/22/17 09/17/20 Butalb/APAP/Caff 50-325-40Mg 1 tab PO DAILY PRN 10/22/17 09/17/20 [Fioricet 50-325-40] Omeprazole [PriLOSEC] 40 mg PO HS 10/22/17 09/17/20 Allergies/Adverse Reactions: Allergies Allergy/AdvReac Type Severity Reaction Status Date / Time No Known Allergies Allergy Verified 09/17/20 12:16 Review of Systems ROS Statement: Those systems with pertinent positive or pertinent negative responses have been documented in the HPI. ROS Other: All systems not noted in ROS Statement are negative. Past Medical History Past Medical History: Deep Vein Thrombosis (DVT), Eye Disorder, Hyperlipidemia, Neurologic Disorder, Thyroid Disorder Additional Past Medical History / Comment(s): BILAT CATARACTS. MIGRAINES History of Any Multi-Drug Resistant Organisms: None Reported Past Surgical History: Section, Hernia Repair, Hysterectomy, Orthopedic Surgery, Tonsillectomy Additional Past Surgical History / Comment(s): COLONOSCOPY, knee Past Anesthesia/Blood Transfusion Reactions: No Reported Reaction Past Psychological History: Anxiety, Depression Smoking Status: Never smoker Past Alcohol Use History: None Reported Past Drug Use History: None Reported - Past Family History Father Family Medical History: Cancer Additional Family Medical History / Comment(s): colon cancer Brother(s) Family Medical History: Cancer Additional Family Medical History / Comment(s): breast General Exam General appearance: alert, in no apparent distress, anxious (Patient is very anxious, hyperventilating, getting carpopedal spasms) Eye exam: Present: normal appearance, PERRL, EOMI. Absent: scleral icterus, conjunctival injection, periorbital swelling ENT exam: Present: normal exam, normal oropharynx, mucous membranes moist Neck exam: Present: normal inspection, full ROM. Absent: tenderness, meningismus, lymphadenopathy Respiratory exam: Present: normal lung sounds bilaterally. Absent: respiratory distress, wheezes, rales, rhonchi, stridor Cardiovascular Exam: Present: regular rate, normal rhythm, normal heart sounds. Absent: systolic murmur, diastolic murmur, rubs, gallop, clicks Extremities exam: Present: other (Left leg swelling and tenderness) Neurological exam: Present: alert Psychiatric exam: Present: anxious Course Vital Signs 05/20/21 05/20/21 10:53 11:58 Temperature 97.8 F Pulse Rate 96 93 Respiratory 18 18 Rate Blood Pressure 129/98 131/73 O2 Sat by Pulse 100 97 Oximetry Medical Decision Making - Medical Decision Making Patient was very anxious upon arrival including hyperventilating, having carpopedal spasms. Patient was given Ativan which is significant helped. Patient did have ultrasound of the left leg as she had recent surgery, swelling and discomfort she was having cramping of her leg most likely related to hyperventilation though DVT was ruled out time. Patient is here with daughter and friend. Patient is diagnosis of panic attack I did offer further evaluation including labs, EKG patient declines. Patient will be discharged daughter agrees to this plan Disposition Clinical Impression: Panic attack Disposition: HOME SELF-CARE Condition: Stable Instructions (If sedation given, give patient instructions): Generalized Anxiety Disorder (ED) Additional Instructions: Please return to the Emergency Department if symptoms worsen or any other concerns. Is patient prescribed a controlled substance at d/c from ED?: No Referrals: Kennedy Nj DO [Primary Care Provider] - 1-2 days Time of Disposition: 12:10
== END 2021-05-20 12:27 | disposition home or self-care (01) ==
LOC: EC 10:31
DX: F41.0 Panic disorder [episodic paroxysmal anxiety] (principal); E78.5 Hyperlipidemia, unspecified; E07.9 Disorder of thyroid, unspecified; F32.A Depression, unspecified; Z86.718 Personal history of other venous thrombosis and embolism; Z90.710 Acquired absence of both cervix and uterus
CPT/HCPCS: 99284; 96372; 93971; J2060

== ENCOUNTER 2022-12-10 11:29 | Emergency (ER) | payer MEDICARE ==
[2022-12-10 11:41] VITALS: RESP 18
[2022-12-10] MEDS ORDERED: DIPH,PERTUS(ACELL)TETVAC-LF 0.5 ML VIAL IM ONE (11:44)
[2022-12-10] MEDS ORDERED: RX INFO: IV CONTRAST WAS GIVEN 1 EACH MISC MISCELLANE PRN (11:44)
[2022-12-10] MEDS ORDERED: HYDROmorphone 0.5 MG/0.5 ML SYRINGE IVP STA ×2 (11:44→14:22)
--- NOTE | 2022-12-10 12:10 | ED ---
General Adult HPI - General Chief complaint: Trauma Stated complaint: Fall,Swing Set Fell on her R side Time Seen by Provider: 12/10/22 11:33 Source: patient, RN notes reviewed, old records reviewed Mode of arrival: ambulatory Limitations: no limitations - History of Present Illness Initial comments: 67-year-old female presenting for evaluation of right shoulder and upper chest pain after a swing set fell on top of her. Patient was mowing the lawn, he got entangled in the chains of the swing set and pulled the swingset over on top of her. No loss conscious. No anticoagulation. No abdominal pain or lower extremity injury. Pain complaint is isolated to the right upper chest and right shoulder. Severity scale (1-10): 10 - Related Data Home Medications Medication Instructions Recorded Confirmed ALPRAZolam [Xanax] 1 mg PO Q8HR 02/19/16 05/20/21 Atorvastatin [Lipitor] 40 mg PO HS 02/19/16 05/20/21 Citalopram Hydrobromide [CeleXA] 60 mg PO HS 02/19/16 05/20/21 Levothyroxine Sodium [Synthroid] 75 mcg PO DAILY 02/19/16 05/20/21 Topiramate [Topamax] 100 mg PO BID 02/19/16 05/20/21 ZOLMitriptan [Zomig] 5 mg PO DAILY PRN 02/19/16 05/20/21 buPROPion SR [Wellbutrin Sr] 150 mg PO BID 02/19/16 05/20/21 Albuterol Sulfate [Proventil Hfa] 1 - 2 puff INHALATION RT-Q6H PRN 10/22/17 05/20/21 Butalb/APAP/Caff 50-325-40Mg 1 tab PO DAILY PRN 10/22/17 05/20/21 [Fioricet 50-325-40] Aspirin EC [Ecotrin] 325 mg PO DAILY 05/20/21 05/20/21 Cyclobenzaprine [Flexeril] 10 mg PO TID PRN 05/20/21 05/20/21 HYDROcodone/APAP 7.5-325MG [[place] 1 - 2 tab PO Q6H PRN 05/20/21 05/20/21 7.5-325] Omeprazole 20 mg PO HS 05/20/21 05/20/21 Sennosides [Senna] 17.2 mg PO DAILY 05/20/21 05/20/21 nitrofurantoin macrocrystaL 100 mg PO BID 05/20/21 05/20/21 [Nitrofurantoin] predniSONE See Taper PO DAILY 05/20/21 05/20/21 Previous Rx's Medication Instructions Recorded HYDROcodone/APAP 5-325MG [[place] 1 tab PO Q6HR PRN #12 tab 12/10/22 5-325] Ibuprofen [Motrin] 600 mg PO Q8HR PRN #24 tab 12/10/22 Allergies Allergy/AdvReac Type Severity Reaction Status Date / Time No Known Allergies Allergy Verified 12/10/22 11:42 Review of Systems ROS Statement: Those systems with pertinent positive or pertinent negative responses have been documented in the HPI. ROS Other: All systems not noted in ROS Statement are negative. Past Medical History Past Medical History: Deep Vein Thrombosis (DVT), Eye Disorder, Hyperlipidemia, Neurologic Disorder, Thyroid Disorder Additional Past Medical History / Comment(s): BILAT CATARACTS. MIGRAINES History of Any Multi-Drug Resistant Organisms: None Reported Past Surgical History: Section, Hernia Repair, Hysterectomy, Orthopedic Surgery, Tonsillectomy Additional Past Surgical History / Comment(s): COLONOSCOPY, knee Past Anesthesia/Blood Transfusion Reactions: No Reported Reaction Past Psychological History: Anxiety, Depression Smoking Status: Never smoker Past Alcohol Use History: None Reported Past Drug Use History: None Reported - Past Family History Father Family Medical History: Cancer Additional Family Medical History / Comment(s): colon cancer Brother(s) Family Medical History: Cancer Additional Family Medical History / Comment(s): breast General Exam Limitations: no limitations General appearance: alert, in no apparent distress Head exam: Present: atraumatic, normocephalic Neck exam: Present: normal inspection Respiratory exam: Present: normal lung sounds bilaterally, chest wall tenderness (There is over the right clavicle and upper chest. As well as right posterior chest wall). Absent: respiratory distress, wheezes Cardiovascular Exam: Present: regular rate, normal rhythm GI/Abdominal exam: Present: soft. Absent: distended, tenderness, guarding Extremities exam: Present: normal capillary refill. Absent: full ROM (Decreased range of motion of the right shoulder secondary to pain, distal pulses intact) Neurological exam: Present: alert, oriented X3, CN II-XII intact Psychiatric exam: Present: normal affect, normal mood Skin exam: Present: abrasion (Right upper chest and right neck) Course Vital Signs 12/10/22 12/10/22 12/10/22 11:39 11:41 13:41 Temperature 98.5 F 98.3 F Pulse Rate 85 72 Respiratory 18 18 18 Rate Blood Pressure 131/57 126/68 Blood Pressure 119/58 [Left Arm] O2 Sat by Pulse 97 81 L 100 Oximetry Medical Decision Making - Medical Decision Making Was pt. sent in by a medical professional or institution (, PA, NUCLEAR RADIOLOGIST, urgent care, hospital, or senior care...) When possible be specific @ -No Did you speak to anyone other than the patient for history (EMS, parent, family, police, friend...)? What history was obtained from this source @ -No Did you review nursing and triage notes (agree or disagree)? Why? @ -I reviewed and agree with nursing and triage notes Were old charts reviewed (outside hosp., previous admission, EMS record, old EKG, old radiological studies, urgent care reports/EKG's, senior care records)? Report findings @ -No old charts were reviewed Differential Diagnosis (chest pain, altered mental status, abdominal pain women, abdominal pain men, vaginal bleeding, weakness, fever, dyspnea, syncope, heada juan, dizziness, GI bleed, back pain, seizure, CVA, palpatations, mental health, musculoskeletal)? @Traumatic injury the right shoulder, upper chest, and neck EKG interpreted by me (3pts min.). @ -Sinus rhythm rate 77, TX interval 157, QRS duration 97, QTC 439, no ST segment elevation X-rays interpreted by me (1pt min.). @ -Single view chest no acute cardio pulmonary findings, no pneumothorax, x-ray of the right shoulder negative for dislocation or fracture CT interpreted by me (1pt min.). @ -CT of the neck and chest is performed no traumatic injury, incidental finding of 8 mm calcification on the vocal cord, patient is informed of this and will follow with her primary care provider. U/S interpreted by me (1pt. min.). @ -None done What testing was considered but not performed or refused? (CT, X-rays, U/S, labs)? Why? @ -None What meds were considered but not given or refused? Why? @ -None Did you discuss the management of the patient with other professionals (professionals i.e. , PA, NUCLEAR RADIOLOGIST, lab, RT, psych nurse, social worker health services, rock duster, teacher, radiation safety officer, life enrichment manager)? Give summary @ -No Was smoking cessation discussed for >3mins.? @ -No Was critical care preformed (if so, how long)? @ -No Were there social determinants of health that impacted care today? How? (Homelessness, low income, unemployed, alcoholism, drug addiction, transportation, low edu. Level, literacy, decrease access to med. care, residential, rehab)? @ -No Was there de-escalation of care discussed even if they declined (Discuss DNR or withdrawal of care, Hospice)? DNR status @ -No What co-morbidities impacted this encounter? (DM, HTN, Smoking, COPD, CAD, Cancer, CVA, ARF, Chemo, Hep., AIDS, mental health diagnosis, sleep apnea, morbid obesity)? @ -None Was patient admitted / discharged? Hospital course, mention meds given and route, prescriptions, significant lab abnormalities, going to OR and other pertinent info. @67-year-old female with trauma to the right shoulder and right upper chest and neck. Traumatic imaging is negative. Laboratory testing unremarkable. Patient's tetanus is up-to-date. Her pain is controlled in the emergency department. She's placed in a sling for comfort and prescribed Motrin and [place] for symptom management. Undiagnosed new problem with uncertain prognosis? @ -No Drug Therapy requiring intensive monitoring for toxicity (Heparin, Nitro, Insulin, Cardizem)? @ -No Were any procedures done? @ -No Diagnosis/symptom? @ -Contusion to the right clavicle and upper chest Acute, or Chronic, or Acute on Chronic? @Acute Uncomplicated (without systemic symptoms) or Complicated (systemic symptoms)? @ -Complicated Side effects of treatment? @ -No Exacerbation, Progression, or Severe Exacerbation? @ -No Poses a threat to life or bodily function? How? (Chest pain, [place], AR, pneumonia, PE, COPD, DKA, ARF, appy, cholecystitis, CVA, Diverticulitis, Homicidal, Suicidal, threat to staff... and all critical care pts) @ -[Low risk at this time - Lab Data Result diagrams: 12/10/22 11:58 12/10/22 11:58 Lab Results 12/10/22 12/10/22 12/10/22 Range/Units 11:58 11:58 11:58 WBC 8.4 (3.8-10.6) k/uL RBC 4.14 (3.80-5.40) m/uL Hgb 13.2 (11.4-16.0) gm/dL Hct 39.7 (34.0-46.0) % MCV 96.0 (80.0-100.0) fL MCH 31.9 (25.0-35.0) pg MCHC 33.3 (31.0-37.0) g/dL RDW 13.2 (11.5-15.5) % Plt Count 231 (150-450) k/uL MPV 7.4 Neutrophils % 63 % Lymphocytes % 29 % Monocytes % 5 % Eosinophils % 1 % Basophils % 0 % Neutrophils # 5.3 (1.3-7.7) k/uL Lymphocytes # 2.4 (1.0-4.8) k/uL Monocytes # 0.4 (0-1.0) k/uL Eosinophils # 0.1 (0-0.7) k/uL Basophils # 0.0 (0-0.2) k/uL PT 10.7 (9.0-12.0) sec INR 1.0 (<1.2) APTT 22.5 (22.0-30.0) sec Sodium 141 (137-145) mmol/L Potassium 4.0 (3.5-5.1) mmol/L Chloride 112 H (98-107) mmol/L Carbon Dioxide 21 L (22-30) mmol/L Anion Gap 8 mmol/L BUN 12 (7-17) mg/dL Creatinine 0.93 (0.52-1.04) mg/dL Est GFR (CKD-EPI)AfAm 73 (>60 ml/min/1.73 sqM) Est GFR (CKD-EPI)NonAf 63 (>60 ml/min/1.73 sqM) Glucose 89 (74-99) mg/dL Calcium 9.2 (8.4-10.2) mg/dL Total Bilirubin 0.6 (0.2-1.3) mg/dL AST 32 (14-36) U/L ALT 37 H (4-34) U/L Alkaline Phosphatase 95 (38-126) U/L Troponin I (0.000-0.034) ng/mL Total Protein 6.7 (6.3-8.2) g/dL Albumin 4.1 (3.5-5.0) g/dL Serum Alcohol <10 mg/dL Blood Type Blood Type Confirm Blood Type Recheck Bld Type Recheck Status Antibody Screen Spec Expiration Date 12/10/22 12/10/22 12/10/22 Range/Units 11:58 12:05 12:05 WBC (3.8-10.6) k/uL RBC (3.80-5.40) m/uL Hgb (11.4-16.0) gm/dL Hct (34.0-46.0) % MCV (80.0-100.0) fL MCH (25.0-35.0) pg MCHC (31.0-37.0) g/dL RDW (11.5-15.5) % Plt Count (150-450) k/uL MPV Neutrophils % % Lymphocytes % % Monocytes % % Eosinophils % % Basophils % % Neutrophils # (1.3-7.7) k/uL Lymphocytes # (1.0-4.8) k/uL Monocytes # (0-1.0) k/uL Eosinophils # (0-0.7) k/uL Basophils # (0-0.2) k/uL PT (9.0-12.0) sec INR (<1.2) APTT (22.0-30.0) sec Sodium (137-145) mmol/L Potassium (3.5-5.1) mmol/L Chloride (98-107) mmol/L Carbon Dioxide (22-30) mmol/L Anion Gap mmol/L BUN (7-17) mg/dL Creatinine (0.52-1.04) mg/dL Est GFR (CKD-EPI)AfAm (>60 ml/min/1.73 sqM) Est GFR (CKD-EPI)NonAf (>60 ml/min/1.73 sqM) Glucose (74-99) mg/dL Calcium (8.4-10.2) mg/dL Total Bilirubin (0.2-1.3) mg/dL AST (14-36) U/L ALT (4-34) U/L Alkaline Phosphatase (38-126) U/L Troponin I <0.012 (0.000-0.034) ng/mL Total Protein (6.3-8.2) g/dL Albumin (3.5-5.0) g/dL Serum Alcohol mg/dL Blood Type Blood Type Confirm A Positive Blood Type Recheck No Previous Record Bld Type Recheck Status CABO Indicated Antibody Screen Spec Expiration Date 12/13/2022 - 235712/10/22 Range/Units 12:10 WBC (3.8-10.6) k/uL RBC (3.80-5.40) m/uL Hgb (11.4-16.0) gm/dL Hct (34.0-46.0) % MCV (80.0-100.0) fL MCH (25.0-35.0) pg MCHC (31.0-37.0) g/dL RDW (11.5-15.5) % Plt Count (150-450) k/uL MPV Neutrophils % % Lymphocytes % % Monocytes % % Eosinophils % % Basophils % % Neutrophils # (1.3-7.7) k/uL Lymphocytes # (1.0-4.8) k/uL Monocytes # (0-1.0) k/uL Eosinophils # (0-0.7) k/uL Basophils # (0-0.2) k/uL PT (9.0-12.0) sec INR (<1.2) APTT (22.0-30.0) sec Sodium (137-145) mmol/L Potassium (3.5-5.1) mmol/L Chloride (98-107) mmol/L Carbon Dioxide (22-30) mmol/L Anion Gap mmol/L BUN (7-17) mg/dL Creatinine (0.52-1.04) mg/dL Est GFR (CKD-EPI)AfAm (>60 ml/min/1.73 sqM) Est GFR (CKD-EPI)NonAf (>60 ml/min/1.73 sqM) Glucose (74-99) mg/dL Calcium (8.4-10.2) mg/dL Total Bilirubin (0.2-1.3) mg/dL AST (14-36) U/L ALT (4-34) U/L Alkaline Phosphatase (38-126) U/L Troponin I (0.000-0.034) ng/mL Total Protein (6.3-8.2) g/dL Albumin (3.5-5.0) g/dL Serum Alcohol mg/dL Blood Type A Positive Blood Type Confirm Blood Type Recheck Bld Type Recheck Status Antibody Screen NEGATIVE Spec Expiration Date Disposition Clinical Impression: Shoulder contusion Disposition: HOME SELF-CARE Condition: Fair Instructions (If sedation given, give patient instructions): Contusion in Adults (ED) Prescriptions: Ibuprofen [Motrin] 600 mg PO Q8HR PRN #24 tab PRN Reason: Pain HYDROcodone/APAP 5-325MG [[place] 5-325] 1 tab PO Q6HR PRN #12 tab PRN Reason: Pain Is patient prescribed a controlled substance at d/c from ED?: No Referrals: Kennedy Nj DO [Primary Care Provider] - 1-2 days Time of Disposition: 15:05
[2022-12-10 12:43] LABS: Basophils % (A) 0 %; Eosinophils # (A) 0.1 k/uL (0-0.7); Eosinophils % (A) 1 %; HCT 39.7 % (34.0-46.0); HGB 13.2 gm/dL (11.4-16.0); Lymphocytes # (A) 2.4 k/uL (1.0-4.8); Lymphocytes % (A) 29 %; MCH 31.9 pg (25.0-35.0); MCHC 33.3 g/dL (31.0-37.0); Mean Platelet Volume 7.4; Monocytes # (A) 0.4 k/uL (0-1.0); Monocytes % (A) 5 %; Neutrophils # (A) 5.3 k/uL (1.3-7.7); Neutrophils % (A) 63 %; Platelet Count 231 k/uL (150-450); RBC 4.14 m/uL (3.80-5.40); RDW 13.2 % (11.5-15.5); WBC 8.4 k/uL (3.8-10.6)
--- NOTE | 2022-12-10 12:43 | XR ---
EXAMINATION TYPE: XR chest 1V portable DATE OF EXAM: 12/10/2022 COMPARISON: None INDICATION: Pain and redness around shoulder TECHNIQUE: Single frontal view of the chest is obtained. FINDINGS: The heart size is normal. The pulmonary vasculature is normal. There is an infiltrate at the left base within the lingula. There is partial silhouetting of the card iac apex and left diaphragm. IMPRESSION: 1. Lingular infiltrate. Correlate for pneumonia.
--- NOTE | 2022-12-10 12:44 | XR ---
EXAMINATION TYPE: XR shoulder complete RT DATE OF EXAM: 12/10/2022 COMPARISON: NONE HISTORY: Pain swingset fell on shoulder TECHNIQUE: Shoulder examined in 3 projections. FINDINGS: The humeral head articulates with the glenoid. The acromio-clavicular junction is normal. No acute fractures or dislocations are evident. A follow up study can be performed 7-10 days from acute trauma for continued pain. MRI can be perfor med if soft tissue evaluation would be of benefit. IMPRESSION: 1. No acute osseous shoulder abnormality.
[2022-12-10 12:52] LABS: ALT 37 U/L (4-34); AST 32 U/L (14-36); African American GFR (CKD) 73 (>60 ml/min/1.73 sqM); Albumin 4.1 g/dL (3.5-5.0); Alcohol <10 mg/dL; Alkaline Phosphatase 95 U/L (38-126); Anion Gap 8 mmol/L; Blood Urea Nitrogen 12 mg/dL (7-17); Calcium 9.2 mg/dL (8.4-10.2); Carbon Dioxide 21 mmol/L (22-30); Chloride 112 mmol/L (98-107); Glucose 89 mg/dL (74-99); Non-African American GFR(CKD) 63 (>60 ml/min/1.73 sqM); Partial Thromboplastin Time 22.5 sec (22.0-30.0); Prothrombin Time 10.7 sec (9.0-12.0); Sodium 141 mmol/L (137-145); Total Bilirubin 0.6 mg/dL (0.2-1.3); Total Protein 6.7 g/dL (6.3-8.2)
--- NOTE | 2022-12-10 14:05 | CT ---
EXAMINATION TYPE: CT neck chest w con CT DLP: 912.8 mGycm, Automated exposure control for dose reduction was used. DATE OF EXAM: 12/10/2022 1:44 PM COMPARISON: None. CLINICAL INDICATION:Female, 67 years old with history of trauma;, Trauma, swing set fell on patient TECHNIQUE: Standard enhanced CT of the neck and chest. Axial sections with coronal and sagittal refo rmats were obtained. Contrast used:100 mL of Isovue 370 with IV Contrast, (none if empty) Oral contrast used: (none if empty) FINDINGS: Brain: Visualized portions are grossly unremarkable. Orbits: Unremarkable Sinuses: Grossly unremarkable. Spaces of the neck: Clear and symmetric. 8 mm calcification in the left vocal cord. Musculoskeletal: No acute osseous pathology. Degenerative disc disease changes of the visualized spin e are present. This is most pronounced at C5-C6 and C6-C7 Lymph nodes: No pathologically enlarged lymph nodes identified. Vascular structures: Visualized major arteries are patent without evidence of aneurysm. Thoracic Inlet/airway: Airway is patent. The lung apices are clear. Soft tissues/Thyroid: Thyroid and remainder of the soft tissues are unremarkable. Other: none. LUNGS/ PLEURA: No pleural effusion, pneumothorax, focal consolidation. Posterior dependent subsegment al atelectasis in the lung bases. AIRWAY: Patent and unremarkable. HEART: Size within normal limits. No pericardial effusion MEDIASTINUM: No evidence of adenopathy. No mediastinal hematoma. VASCULATURE: No aortic aneurysm. MUSCULOSKELETAL: Mild disc degeneration changes are present throughout the thoracolumbar spine. No ac boni osseous abnormality. SOFT TISSUES/LYMPH NODES: Unremarkable. LOWER NECK: No significant findings. UPPER ABDOMEN: Few scattered cysts within the liver. IMPRESSION 1. No acute traumatic process within the neck or chest. 2. Left vocal cord calcification.
[2022-12-10 14:17] VITALS: TEMP 98.3
[2022-12-10] MEDS ORDERED: KETOROLAC 15 MG/ML 1 ML VIAL IVP STA (14:22)
[2022-12-10 15:21] VITALS: BP 113/78; PULSE 75
== END 2022-12-10 15:25 | disposition home or self-care (01) ==
LOC: EC 11:29
DX: S40.011A Contusion of right shoulder, initial encounter (principal); E78.5 Hyperlipidemia, unspecified; E07.9 Disorder of thyroid, unspecified; F41.9 Anxiety disorder, unspecified; F32.A Depression, unspecified; Z79.899 Other long term (current) drug therapy; Z79.890 Hormone replacement therapy; Z79.82 Long term (current) use of aspirin; X50.0XXA Overexertion from strenuous movement or load, initial encounter
CPT/HCPCS: 36415; 93005; 86900; 86901; 80053; 84484; 85025; 85610; 85730; 86850; 73030; 71045; 70491; 71260; 99285; 96374; 96375; 96376; G0480; J1885; J1170; Q9967; 80320

== ENCOUNTER 2023-01-12 11:44 | Emergency (ER) | payer MEDICARE ==
[2023-01-12 12:05] VITALS: RESP 18; TEMP 98
[2023-01-12 14:10] LABS: Appearance,Urine Turbid (Clear); Bacteria,Urine Occasional /hpf; Bilirubin,Urine Negative (Negative); Blood,Urine Large (Negative); Budding Yeast,Urine Moderate /hpf; Glucose,Urine (UA) Negative (Negative); Ketones,Urine Negative (Negative); Leukocyte Esterase,Urine Large (Negative); Mucus,Urine Moderate /hpf; Nitrite,Urine Negative (Negative); PH, Urine 5.5 (5.0-8.0); Protein,Urine 2+ (Negative); RBC,Urine >182 /hpf (0-5); Specific Gravity,Urine 1.018 (1.001-1.035); Urobilinogen,Urine <2.0 mg/dL (<2.0); WBC,Urine >182 /hpf (0-5)
[2023-01-12 14:41] LABS: Color,Urine Yellow
[2023-01-12] MEDS ORDERED: cefTRIAXone 1,000 MG VIAL (IM USE) IM STA (15:04)
[2023-01-12] MEDS ORDERED: MORPHINE SULFATE 4 MG/ML SYRINGE IM STA (15:11)
--- NOTE | 2023-01-12 15:16 | ED ---
General Adult HPI - General Chief complaint: Urogenital Stated complaint: Bladder Problems Time Seen by Provider: 01/12/23 14:24 Source: patient Mode of arrival: ambulatory Limitations: no limitations - History of Present Illness Initial comments: Dictation was produced using addwish dictation software. please excuse any grammatical, word or spelling errors. Chief Complaint: 67-year-old female with dysuria, urinary frequency and suprapubic pain History of Present Illness: 77-year-old female has past medical history of UTI. States that since today she's been having burning sensation in the suprapubic area along with urinary symptoms described as urinary frequency, urgency and dysuria. Denies any fever. No flank pain. The ROS documented in this emergency department record has been reviewed and confirmed by me. Those systems with pertinent positive or negative responses have been documented in the HPI. All other systems are other negative and/or noncontributory. - Related Data Home Medications Medication Instructions Recorded Confirmed ALPRAZolam [Xanax] 1 mg PO Q8HR 02/19/16 05/20/21 Atorvastatin [Lipitor] 40 mg PO HS 02/19/16 05/20/21 Citalopram Hydrobromide [CeleXA] 60 mg PO HS 02/19/16 05/20/21 Levothyroxine Sodium [Synthroid] 75 mcg PO DAILY 02/19/16 05/20/21 Topiramate [Topamax] 100 mg PO BID 02/19/16 05/20/21 ZOLMitriptan [Zomig] 5 mg PO DAILY PRN 02/19/16 05/20/21 buPROPion SR [Wellbutrin Sr] 150 mg PO BID 02/19/16 05/20/21 Albuterol Sulfate [Proventil Hfa] 1 - 2 puff INHALATION RT-Q6H PRN 10/22/17 05/20/21 Butalb/APAP/Caff 50-325-40Mg 1 tab PO DAILY PRN 10/22/17 05/20/21 [Fioricet 50-325-40] Aspirin EC [Ecotrin] 325 mg PO DAILY 05/20/21 05/20/21 Cyclobenzaprine [Flexeril] 10 mg PO TID PRN 05/20/21 05/20/21 HYDROcodone/APAP 7.5-325MG [[place] 1 - 2 tab PO Q6H PRN 05/20/21 05/20/21 7.5-325] Omeprazole 20 mg PO HS 05/20/21 05/20/21 Sennosides [Senna] 17.2 mg PO DAILY 05/20/21 05/20/21 nitrofurantoin macrocrystaL 100 mg PO BID 05/20/21 05/20/21 [Nitrofurantoin] predniSONE See Taper PO DAILY 05/20/21 05/20/21 Previous Rx's Medication Instructions Recorded HYDROcodone/APAP 5-325MG [[place] 1 tab PO Q6HR PRN #12 tab 12/10/22 5-325] Ibuprofen [Motrin] 600 mg PO Q8HR PRN #24 tab 12/10/22 Cephalexin [Keflex] 500 mg PO Q6HR 5 Days #20 cap 01/12/23 Allergies Allergy/AdvReac Type Severity Reaction Status Date / Time No Known Allergies Allergy Verified 12/10/22 11:42 Review of Systems ROS Statement: Those systems with pertinent positive or pertinent negative responses have been documented in the HPI. ROS Other: All systems not noted in ROS Statement are negative. Past Medical History Past Medical History: Deep Vein Thrombosis (DVT), Eye Disorder, Hyperlipidemia, Neurologic Disorder, Thyroid Disorder Additional Past Medical History / Comment(s): BILAT CATARACTS. MIGRAINES History of Any Multi-Drug Resistant Organisms: None Reported Past Surgical History: Section, Hernia Repair, Hysterectomy, Orthopedic Surgery, Tonsillectomy Additional Past Surgical History / Comment(s): COLONOSCOPY, knee Past Anesthesia/Blood Transfusion Reactions: No Reported Reaction Past Psychological History: Anxiety, Depression Smoking Status: Never smoker Past Alcohol Use History: None Reported Past Drug Use History: None Reported - Past Family History Father Family Medical History: Cancer Additional Family Medical History / Comment(s): colon cancer Brother(s) Family Medical History: Cancer Additional Family Medical History / Comment(s): breast General Exam - General Exam Comments Initial Comments: PHYSICAL EXAM: General Impression: Alert and oriented x3, not in acute distress HEENT: Normocephalic atraumatic, extra-ocular movements intact, pupils equal and reactive to light bilaterally, mucous membranes moist. Cardiovascular: Heart regular rate and rhythm Chest: Able to complete full sentences, no retractions, no tachypnea Abdomen: abdomen soft, mild tenderness to the superior., non-distended, no organomegaly, negative CVA tenderness Musculoskeletal: Pulses present and equal in all extremities, no peripheral edema Motor: no focal deficits noted Neurological: CN II-XII grossly intact, no focal motor or sensory deficits noted Skin: Intact with no visualized rashes Psych: Normal affect and mood Limitations: no limitations Course Vital Signs 01/12/23 01/12/23 01/12/23 11:52 14:42 15:07 Temperature 98.0 F Pulse Rate 91 86 87 Respiratory 18 18 18 Rate Blood Pressure 119/66 138/73 131/81 O2 Sat by Pulse 96 98 97 Oximetry Medical Decision Making - Medical Decision Making Was pt. sent in by a medical professional or institution (, SACHI, VETERINARY INSPECTOR, urgent care, hospital, or halfway...) When possible be specific @ -No Did you speak to anyone other than the patient for history (EMS, parent, family, police, friend...)? What history was obtained from this source @ -No Did you review nursing and triage notes (agree or disagree)? Why? @ -I reviewed and agree with nursing and triage notes Were old charts reviewed (outside hosp., previous admission, EMS record, old EKG, old radiological studies, urgent care reports/EKG's, halfway records)? Report findings @ -No old charts were reviewed Differential Diagnosis (chest pain, altered mental status, abdominal pain women, abdominal pain men, vaginal bleeding, musculoskeletal, weakness, fever, dyspnea, syncope, headache, dizziness, GI bleed, back pain, seizure, CVA, palpatations, mental health)? @ -Differential abdominal pain women EKG interpreted by me (3pts min.). @ -None done X-rays interpreted by me (1pt min.). @ -None done CT interpreted by me (1pt min.). @ -None done U/S interpreted by me (1pt. min.). @ -None done What testing was considered but not performed or refused? (CT, X-rays, U/S, labs)? Why? @ -None What meds were considered but not given or refused? Why? @ -None Did you discuss the management of the patient with other professionals (professionals i.e. SACHI Reeder, VETERINARY INSPECTOR, lab, RT, psych nurse, social media manager, service trainer, teacher, home school liaison officer, case loader operator)? Give summary @ -No Was smoking cessation discussed for >3mins.? @ -No Was critical care preformed (if so, how long)? @ -No Were there social determinants of health that impacted care today? How? (Homelessness, low income, unemployed, alcoholism, drug addiction, transportation, low edu. Level, literacy, decrease access to med. care, residential, rehab)? @ -No Was there de-escalation of care discussed even if they declined (Discuss DNR or withdrawal of care, Hospice)? DNR status @ -No What co-morbidities impacted this encounter? (DM, HTN, Smoking, COPD, CAD, Cancer, CVA, ARF, Chemo, Hep., AIDS, mental health diagnosis, sleep apnea, m orbid obesity)? @ -None Was patient admitted / discharged? Hospital course, mention meds given and route, prescriptions, significant lab abnormalities, going to OR and other pertinent info. @ -67-year-old female with reported no significant past medical history presents to the ER for symptoms suspicious for bladder cystitis. Urinalysis pos itive for urinary tract infection. Patient does not have any clinical symptoms to suggest pyelonephritis. Vital signs are stable. Patient is well-appearing at the bedside. Patient given IM ceftriaxone. She also given IM morphine. Patient discharged with prescription for antibiotics. Advised follow-up with primary care doctor. Previous microbiology reports reviewed showing no history of drug resistant UTI. Return precautions discussed. Undiagnosed new problem with uncertain prognosis? @ -No Drug Therapy requiring intensive monitoring for toxicity (Heparin, Nitro, Insulin, Cardizem)? @ -No Were any procedures done? @ -No Diagnosis/symptom? Acute, or Chronic, or Acute on Chronic? Uncomplicated (without systemic symptoms) or Complicated (systemic symptoms)? @ -Urinary tract infection Side effects of treatment? @ -No Exacerbation, Progression, or Severe Exacerbation? @ -No Poses a threat to life or bodily function? How? (Chest pain, USA, CA, pneumonia, PE, COPD, DKA, ARF, appy, cholecystitis, CVA, Diverticulitis, Homicidal, Suicidal, threat to staff... and all critical care pts) @ -yes - Lab Data Lab Results 01/12/23 Range/Units 13:38 Urine Color Yellow Urine Appearance Turbid H (Clear) Urine pH 5.5 (5.0-8.0) Ur Specific Robertson 1.018 (1.001-1.035) Urine Protein 2+ H (Negative) Urine Glucose (UA) Negative (Negative) Urine Ketones Negative (Negative) Urine Blood Large H (Negative) Urine Nitrite Negative (Negative) Urine Bilirubin Negative (Negative) Urine Urobilinogen <2.0 (<2.0) mg/dL Ur Leukocyte Esterase Large H (Negative) Urine RBC >182 H (0-5) /hpf Urine WBC >182 H (0-5) /hpf Urine Bacteria Occasional H (None) /hpf Urine Mucus Moderate H (None) /hpf Urine Yeast (Budding) Moderate H (None) /hpf Disposition Clinical Impression: Urinary tract infection Disposition: HOME SELF-CARE Condition: Good Instructions (If sedation given, give patient instructions): Urinary Tract Infection in Women (ED) Prescriptions: Cephalexin [Keflex] 500 mg PO Q6HR 5 Days #20 cap Is patient prescribed a controlled substance at d/c from ED?: No Referrals: Kennedy Nj DO [Primary Care Provider] - 1-2 days Time of Disposition: 15:16
[2023-01-12 15:18] VITALS: BP 131/81; PULSE 87
== END 2023-01-12 15:31 | disposition home or self-care (01) ==
LOC: EC 11:44
DX: N39.0 Urinary tract infection, site not specified (principal); E78.5 Hyperlipidemia, unspecified; E07.9 Disorder of thyroid, unspecified; F41.9 Anxiety disorder, unspecified; F32.A Depression, unspecified; Z79.890 Hormone replacement therapy; Z79.899 Other long term (current) drug therapy; Z79.82 Long term (current) use of aspirin
CPT/HCPCS: 81001; 87086; 99283; 96372 ×2; J2270; J0696

== ENCOUNTER → 2024-02-29 | Outpatient (CLI) | payer MEDICARE ==
--- NOTE | 2024-02-29 17:06 | CT ---
EXAMINATION TYPE: CT soft tissue neck wo con CT DLP: 432.9 mGycm, Automated exposure control for dose reduction was used. DATE OF EXAM: 02/29/2024 4:14 PM COMPARISON: CT neck chest 12/10/2022. CLINICAL INDICATION:Female, 68 years old with history of J38.7 OTHER DISEASES OF LARYNX; PHH, f/u harman cification on vocal cords TECHNIQUE: Standard CT of the neck without administration of intravenous contrast. Axial sections wi th coronal and sagittal reformats were obtained. Lack of intravenous contrast limits evaluation. FINDINGS: Brain: Visualized portions are grossly unremarkable. Orbits: Bilateral aphakia. Sinuses: Minimal mucosal thickening of the bilateral maxillary sinuses. Suprahyoid Neck: The oropharynx, oral cavity, parapharyngeal and retropharyngeal spaces are clear and symmetric. The nasopharynx is unremarkable. Infrahyoid Neck: The larynx and hypopharynx are clear and symmetric. Stable asymmetric left arachnoid cartilage calcification measuring 8 mm (series 3, image 42). Vocal cords appear symmetric. Parotid Glands: Unremarkable. Submandibular Glands: Unremarkable. Musculoskeletal: Mild degenerative disc disease changes of the visualized spine are present. Lymph nodes: No enlarged lymph nodes in the 1 cm short axis.. Vascular structures: Mild atherosclerotic calcification of the bilateral carotid bulbs. Thoracic Inlet/airway: Airway is patent. Minimal biapical pleural parenchymal scarring. Soft tissues/Thyroid: Thyroid and remainder of the soft tissues are unremarkable. Other: none. IMPRESSION: 1. No acute process within the neck within limitations of a noncontrast exam. 2. Stable left arytenoid cartilage calcification. Vocal cords appear symmetric. [facility], , 02/29/2024 5:04 PM
== END | disposition home or self-care (01) ==
LOC: RADCTMAIN 15:38
PROVIDERS: ATTEND Family Medicine
DX: J38.7 Other diseases of larynx (principal); H27.03 Aphakia, bilateral; I65.23 Occlusion and stenosis of bilateral carotid arteries
CPT/HCPCS: 70490

== ENCOUNTER 2024-06-13 11:21 | Observation (INO) | payer MEDICARE ==
--- NOTE | 2024-06-13 12:22 | ED ---
Back Pain HPI - General Chief Complaint: Back Pain/Injury Stated Complaint: Lower back pain Time Seen by Provider: 06/13/24 11:41 Source: patient, RN notes reviewed Mode of arrival: ambulatory Limitations: no limitations - History of Present Illness Initial Comments: This is a 69-year-old female who presents to the emergency department for lower back pain. States that it started 2 days ago. Denies any known injuries. States that the pain seems to be getting worse. Pain is in the lower back and is not worse on any particular side. She does note that the top of her hips almost feel numb. Denies any loss of bowel/bladder control. Pain does not radiate down the legs. She has not taken anything for her pain. MD Complaint: back pain - Related Data Home Medications Medication Instructions Recorded Confirmed ALPRAZolam [Xanax] 1 mg PO Q8HR 02/19/16 05/20/21 Atorvastatin [Lipitor] 40 mg PO HS 02/19/16 05/20/21 Citalopram Hydrobromide [CeleXA] 60 mg PO HS 02/19/16 05/20/21 Levothyroxine Sodium [Synthroid] 75 mcg PO DAILY 02/19/16 05/20/21 Topiramate [Topamax] 100 mg PO BID 02/19/16 05/20/21 ZOLMitriptan [Zomig] 5 mg PO DAILY PRN 02/19/16 05/20/21 buPROPion SR [Wellbutrin Sr] 150 mg PO BID 02/19/16 05/20/21 Albuterol Sulfate [Proventil Hfa] 1 - 2 puff INHALATION RT-Q6H PRN 10/22/17 05/20/21 Butalb/APAP/Caff 50-325-40Mg 1 tab PO DAILY PRN 10/22/17 05/20/21 [Fioricet 50-325-40] Aspirin EC [Ecotrin] 325 mg PO DAILY 05/20/21 05/20/21 Cyclobenzaprine [Flexeril] 10 mg PO TID PRN 05/20/21 05/20/21 HYDROcodone/APAP 7.5-325MG [[place] 1 - 2 tab PO Q6H PRN 05/20/21 05/20/21 7.5-325] Omeprazole 20 mg PO HS 05/20/21 05/20/21 Sennosides [Senna] 17.2 mg PO DAILY 05/20/21 05/20/21 nitrofurantoin macrocrystaL 100 mg PO BID 05/20/21 05/20/21 [Nitrofurantoin] predniSONE See Taper PO DAILY 05/20/21 05/20/21 Previous Rx's Medication Instructions Recorded HYDROcodone/APAP 5-325MG [[place] 1 tab PO Q6HR PRN #12 tab 12/10/22 5-325] Ibuprofen [Motrin] 600 mg PO Q8HR PRN #24 tab 12/10/22 Cephalexin [Keflex] 500 mg PO Q6HR 5 Days #20 cap 01/12/23 Allergies Allergy/AdvReac Type Severity Reaction Status Date / Time No Known Allergies Allergy Verified 06/13/24 16:06 Review of Systems ROS Statement: Those systems with pertinent positive or pertinent negative responses have been documented in the HPI. ROS Other: All systems not noted in ROS Statement are negative. Past Medical History Past Medical History: Deep Vein Thrombosis (DVT), Eye Disorder, Hyperlipidemia, Neurologic Disorder, Thyroid Disorder Additional Past Medical History / Comment(s): BILAT CATARACTS. MIGRAINES History of Any Multi-Drug Resistant Organisms: None Reported Past Surgical History: Section, Hernia Repair, Hysterectomy, Orthopedic Surgery, Tonsillectomy Additional Past Surgical History / Comment(s): COLONOSCOPY, knee Past Anesthesia/Blood Transfusion Reactions: No Reported Reaction Past Psychological History: Anxiety, Depression Smoking Status: Never smoker Past Alcohol Use History: None Reported Past Drug Use History: None Reported - Past Family History Father Family Medical History: Cancer Additional Family Medical History / Comment(s): colon cancer Brother(s) Family Medical History: Cancer Additional Family Medical History / Comment(s): breast General Exam Limitations: no limitations General appearance: alert, in no apparent distress Head exam: Present: atraumatic, normocephalic, normal inspection Respiratory exam: Present: normal lung sounds bilaterally. Absent: respiratory distress, wheezes, rales, rhonchi, stridor Cardiovascular Exam: Present: regular rate, normal rhythm Back exam: Present: other (Tenderness to palpation over the lower lumbar spine) Neurological exam: Present: alert, oriented X3, CN II-XII intact Psychiatric exam: Present: normal affect, normal mood Skin exam: Present: warm, dry, intact, normal color. Absent: rash Course Vital Signs 06/13/24 11:23 Temperature 97.9 F Pulse Rate 60 Respiratory 18 Rate Blood Pressure 109/65 O2 Sat by Pulse 96 Oximetry Medical Decision Making - Medical Decision Making This is a 69 year old female who presents to the emergency department for lower back pain. Was pt. sent in by a medical professional or institution? @ -No Did you speak to anyone other than the patient for history? @ -No Did you review nursing and triage notes? @ -Yes, and I agree, it is accurate with regards to the patient's symptoms. Were old charts reviewed? @ -No Differential Diagnosis? @ -Differential Back Pain: Strain, zoster, cauda equina syndrome, epidural abscess, vertebral osteomyelitis, discitis, fracture, subluxation, disc herniation, DJD, spinal stenosis, dissection, AAA, pancreatitis, peptic ulcer disease, pyelonephritis, kidney stone, this is not meant to be an all-inclusive list. EKG interpreted by me (3pts min.)? @ -Not obtained X-rays interpreted by me (1pt min.)? @ -Not obtained CT interpreted by me (1pt min.)? @ -CT scan of the lumbar spine obtained. My interpretation identifies cortical buckling of L1. U/S interpreted by me (1pt. min.)? @ -Not obtained What testing was considered but not performed? (CT, X-rays, U/S, labs)? Why? @ -None What meds were considered but not given? Why? @ -None Did you discuss the management of the patient with other professionals? @ -Yes, Dr. Nj, who accepts the patient for admission. Did you reconcile home meds? @ -No Was smoking cessation discussed for >3mins.? @ -No Was critical care preformed (if so, how long)? @ -No Were there social determinants of health that impacted care today? How? (Homelessness, low income, unemployed, alcoholism, drug addiction, transportation, low edu. Level, literacy, decrease access to med. care, shelter, rehab)? @ -No Was there de-escalation of care discussed even if they declined? (Discuss DNR or withdrawal of care, Hospice)? @ -No What co-morbidities impacted this encounter? (DM, HTN, Smoking, COPD, CAD, Cancer, CVA, Hep., AIDS, mental health diagnosis, sleep apnea, morbid obesity)? @ -None Was patient admitted / discharged? @ -Admitted. CT scan of the lumbar spine obtained revealing cortical buckling of the L1 vertebral body suggesting compression fracture. Patient reports a fracture to either this vertebrae or one of the surrounding ones many years ago. It is unclear if this is acute or old, however the description of the fracture with radiology interpretation suggests an acute fracture. She was given multiple doses of pain medication including Dilaudid, Toradol, Norflex, Valium, Tylenol, and a lidocaine patch. However, she continued to be in severe pain and was concerned about going home on oral pain medication and being able to manage her symptoms. She was subsequently admitted to medicine for the L1 compression fracture with intractable back pain. Consult placed for Dr. Rehman, ortho- spine. Case discussed with ED attending Dr. Pop. Undiagnosed new problem with uncertain prognosis? @ -None Drug Therapy requiring intensive monitoring for toxicity (Heparin, Nitro, Insulin, Cardizem)? @ -None Were any procedures done? @ -None Diagnosis/symptom? @ -L1 compression fracture, intractable pain Acute, or Chronic, or Acute on Chronic? @ -Acute Uncomplicated (without systemic symptoms) or Complicated (systemic symptoms)? @ -Uncomplicated Side effects of treatment? @ -None Exacerbation, Progression, or Severe Exacerbation] @ -Not applicable Poses a threat to life or bodily function? @ -Yes, the pain is limiting her ability to function - Radiology Data Radiology results: report reviewed, image reviewed Disposition Clinical Impression: Compression fracture of L1 lumbar vertebra, Intractable low back pain Disposition: ADMITTED IP TO THIS HOSP Referrals: Kennedy Nj DO [Primary Care Provider] - 1-2 days Time of Disposition: 14:05
[2024-06-13] MEDS: ORPHENADRINE 30 MG/ML 2 ML VIAL IVP STA (12:31)
[2024-06-13] MEDS: KETOROLAC 15 MG/ML 1 ML VIAL IVP STA ×2 (12:31→13:40)
[2024-06-13] MEDS: DEXAMETHASONE SOD PHOSPHATE 10 MG/ML 1 ML VIAL IVP STA (12:31)
[2024-06-13] MEDS: HYDROmorphone 1 MG/ML 1 ML SYRINGE IVP STA ×2 (12:31→13:40)
[2024-06-13] MEDS: LIDOCAINE 4% PATCH TOPICAL ONE (12:32)
--- NOTE | 2024-06-13 12:39 | CT ---
EXAMINATION TYPE: CT lumbar spine wo con DATE OF EXAM: 06/13/2024 12:21 PM COMPARISON: None. CLINICAL INDICATION: Female, 69 years old with history of Pain; PHH, LUMBAR PAIN TECHNIQUE: Multiple axial images were obtained from the midportion of T11 through the sacroiliac holger nts. Soft tissue and bone windows in coronal and sagittal planes were obtained and reviewed. 3-D ref ormats of the bones were created on a separate workstation and submitted for review. Contrast used: mL of , (None, if empty). Oral contrast used: (None, if empty). CT DLP: 1762.9 mGycm, Automated exposure control for dose reduction was used. FINDINGS: Alignment: There are 5 lumbar type vertebral bodies within normal alignment. Bone: Cortical buckling of the vertebral body at L1 with less than 25% height loss. No significant re tropulsion or spinal canal stenosis. Mild degeneration with osteophyte formation and facet arthropath y. Discs: T12-L1: No spinal canal or neural foraminal stenosis is identified. L1-L2: No spinal canal or neural foraminal stenosis is identified. L2-L3: No spinal canal or neural foraminal stenosis is identified. L3-L4: No spinal canal or neural foraminal stenosis is identified. L4-L5: No spinal canal or neural foraminal stenosis is identified. L5-S1: No spinal canal or neural foraminal stenosis is identified. Other: None IMPRESSION: 1. Cortical buckling of the L1 vertebral body suggesting compression fracture. Correlation with MRI recommended. 2. Mild to moderate degeneration changes of the spine. 3. No significant spinal canal neural foraminal stenosis visualized. [facility], , 06/13/2024 12:37 PM
[2024-06-13] MEDS: ACETAMINOPHEN TAB 500 MG TAB PO STA (14:23)
[2024-06-13] MEDS ORDERED: HYDROmorphone 0.5 MG/0.5 ML SYRINGE IVP PRN (15:54)
[2024-06-13] MEDS ORDERED: NALOXONE 0.4 MG/ML 1 ML VIAL IV PRN (15:54)
[2024-06-13] MEDS: HYDROmorphone 1 MG/ML 1 ML SYRINGE IVP PRN (16:22)
[2024-06-13 16:31] LABS: Appearance,Urine Cloudy (Clear); Bacteria,Urine Rare /hpf; Bilirubin,Urine Negative (Negative); Blood,Urine Negative (Negative); Color,Urine Yellow; Glucose,Urine (UA) Negative (Negative); Hyaline Casts,Urine 10 /lpf (0-2); Ketones,Urine Negative (Negative); Leukocyte Esterase,Urine Negative (Negative); Mucus,Urine Many /hpf; Nitrite,Urine Negative (Negative); PH, Urine 5.5 (5.0-8.0); Protein,Urine Trace (Negative); RBC,Urine 1 /hpf (0-5); Specific Gravity,Urine 1.027 (1.001-1.035); Squamous Epithelial Cell,Urine 1 /hpf (0-4); Urobilinogen,Urine <2.0 mg/dL (<2.0); WBC,Urine 3 /hpf (0-5)
[2024-06-13 16:39] LABS: ALT 45 U/L (4-34); AST 28 U/L (14-36); African American GFR (CKD) 70 (>60 ml/min/1.73 sqM); Albumin 4.2 g/dL (3.5-5.0); Alkaline Phosphatase 115 U/L (38-126); Anion Gap 6 mmol/L; Blood Urea Nitrogen 11 mg/dL (7-17); Carbon Dioxide 25 mmol/L (22-30); Chloride 108 mmol/L (98-107); Glucose 105 mg/dL (74-99); Non-African American GFR(CKD) 61 (>60 ml/min/1.73 sqM); Sodium 139 mmol/L (137-145); Total Bilirubin 0.5 mg/dL (0.2-1.3); Total Protein 6.5 g/dL (6.3-8.2)
[2024-06-13 17:02] LABS: HCT 42.5 % (34.0-46.0); HGB 13.5 gm/dL (11.4-16.0); MCH 30.8 pg (25.0-35.0); MCHC 31.8 g/dL (31.0-37.0); MCV 96.7 fL (80.0-100.0); Mean Platelet Volume 7.2; Platelet Count 200 k/uL (150-450); RBC 4.39 m/uL (3.80-5.40); RDW 13.7 % (11.5-15.5); WBC 4.3 k/uL (3.8-10.6)
--- NOTE | 2024-06-13 17:10 | P.CNOR ---
History of Present Illness - [facility] Consult date: 06/13/24 Requesting physician: Em Ayala Consult reason: fracture (L1 compression Fx; Intractable LBP) History of present illness: Patient is a very pleasant 69-year-old female who is seen examined at the bedside in ER room #30 for further evaluation of her lumbar spine. Patient s tates on Thursday morning, 06/11/2024, she woke up in the morning with significant pain at the lumbosacral junction. Her pain has continued to worsen. She denies any injuries. She denies any lower extremity weakness or radiculopathy bilaterally. She does have some chronic difficulty with her left knee following a previous total knee arthroplasty. She presented to the emergency department after her symptoms were not improving. She has been given multiple medications without significant improvement of her pain. Nothing makes her pain better. Her pain is exacerbated all activities. She does have significant pain with palpation over her lumbosacral junction. She states the pain radiates across her lumbosacral spine. She currently has a lidocaine patch intact. She is waiting for transfer to the sixth floor. She is admitted to medicine. She admits to history of previous lumbar compression fracture deformity multiple years ago but is unsure of the number. She is unable to take steroid medication as she states it interferes with her psychiatric medications. Past Medical History Past Medical History: Deep Vein Thrombosis (DVT), Eye Disorder, Hyperlipidemia, Neurologic Disorder, Thyroid Disorder Additional Past Medical History / Comment(s): BILAT CATARACTS. MIGRAINES History of Any Multi-Drug Resistant Organisms: None Reported Past Surgical History: Section, Hernia Repair, Hysterectomy, Orthopedic Surgery, Tonsillectomy Additional Past Surgical History / Comment(s): COLONOSCOPY, knee Past Anesthesia/Blood Transfusion Reactions: No Reported Reaction Past Psychological History: Anxiety, Depression Smoking Status: Never smoker Past Alcohol Use History: None Reported Past Drug Use History: None Reported - Past Family History Father Family Medical History: Cancer Additional Family Medical History / Comment(s): colon cancer Brother(s) Family Medical History: Cancer Additional Family Medical History / Comment(s): breast Medications and Allergies Home Medications Medication Instructions Recorded Confirmed Type ALPRAZolam [Xanax] 1 mg PO BID PRN 02/19/16 06/13/24 History Atorvastatin [Lipitor] 40 mg PO HS 02/19/16 06/13/24 History Citalopram Hydrobromide [CeleXA] 40 mg PO HS 02/19/16 06/13/24 History Levothyroxine Sodium [Synthroid] 75 mcg PO DAILY 02/19/16 06/13/24 History Topiramate [Topamax] 100 mg PO BID 02/19/16 06/13/24 History ZOLMitriptan [Zomig] 5 mg PO DAILY PRN 02/19/16 06/13/24 History Albuterol Sulfate [Proventil Hfa] 2 puff INHALATION RT-Q4H PRN 10/22/17 06/13/24 History Butalb/APAP/Caff 50-325-40Mg 1 tab PO DAILY PRN 10/22/17 06/13/24 History [Fioricet 50-325-40] Omeprazole 20 mg PO HS 05/20/21 06/13/24 History HYDROcodone/APAP 5-325MG [[place] 1 tab PO QID PRN 06/13/24 06/13/24 History 5-325] Ibuprofen [Motrin] 800 mg PO TID PRN 06/13/24 06/13/24 History buPROPion HCL [Wellbutrin SR] 200 mg PO BID 06/13/24 06/13/24 History Allergies Allergy/AdvReac Type Severity Reaction Status Date / Time No Known Allergies Allergy Verified 06/13/24 16:06 Physical Examination Osteopathic Statement: *. No significant issues noted on an osteopathic structural exam other than those noted in the History and Physical/Consult. Physical exam: Patient is awake, alert, and oriented 3 Vital signs stable Good chest excursion with deep inspiration and expiration Abdomen soft nontender Examination of lumbar spine reveals skin is intact with no abrasions, lacerations, or bruises; no erythema, purulence or signs of infection Lidocaine patch intact along the midline near the lumbosacral junction No pain with palpation of the upper lumbar spine Significant pain with palpation at the lumbosacral junction and the laterally bilaterally across the lumbosacral junction Dorsiflexion, plantarflexion, and extensor hallucis longus positive sustained bilaterally Lower extremity strength 5/5 bilaterally except for the left knee Decreased range of motion of the left knee, chronic following left total knee arthroplasty No lower extremity hyperreflexia bilaterally Straight leg test negative bilateral lower extremities No signs or symptoms of DVT; no calf pain No pain with internal and external rotation of the hips bilaterally Neurovascularly intact Results Pertinent studies: CT of the lumbar spine taken on 06/13/2024: L1 compression fracture deformity of indeterminate age there may be chronic as there is evidence of bridging osteophytic spurring between T12 and L1; overall alignment is adequate maintained; no significant degenerative disc disease - Labs Labs: Abnormal Lab Results - Last 24 Hours (Table) 06/13/24 06/13/24 Range/Units 16:14 16:14 Chloride 108 H (98-107) mmol/L Glucose 105 H (74-99) mg/dL ALT 45 H (4-34) U/L Urine Appearance Cloudy H (Clear) Urine Protein Trace H (Negative) Urine Bacteria Rare H (None) /hpf Hyaline Casts 10 H (0-2) /lpf Urine Mucus Many H (None) /hpf Result Diagrams: 06/13/24 16:14 06/13/24 16:14 Assessment and Plan Assessment: Assessment: History of lumbar compression fracture deformity L1 compression fracture deformity of indeterminate age Intractable lumbosacral pain Chronic decreased range of motion of left knee following left total knee arthroplasty History of DVT Hyperlipidemia Neurologic disorder Thyroid disorder (1) Lumbosacral pain Current Visit: Yes Status: Acute Code(s): M54.50 - LOW BACK PAIN, UNSPECIFIED SNOMED Code(s): 477414336 (2) History of compression fracture of spine Current Visit: Yes Status: Acute Code(s): Z87.81 - PERSONAL HISTORY OF (HEALED) TRAUMATIC FRACTURE SNOMED Code(s): 270386898 (3) History of DVT (deep vein thrombosis) Current Visit: Yes Status: Acute Code(s): Z86.718 - PERSONAL HISTORY OF OTHER VENOUS THROMBOSIS AND EMBOLISM SNOMED Code(s): 734056089 (4) Hyperlipidemia Current Visit: Yes Status: Acute Code(s): E78.5 - HYPERLIPIDEMIA, UNSPECIFIED SNOMED Code(s): 61235826 (5) Neurologic disorder Current Visit: Yes Status: Acute Code(s): G98.8 - OTHER DISORDERS OF NERVOUS SYSTEM SNOMED Code(s): 248721537 (6) Thyroid disorder Current Visit: Yes Status: Acute Code(s): E07.9 - DISORDER OF THYROID, UNSPECIFIED SNOMED Code(s): 44797115 (7) Compression fracture of L1 lumbar vertebra Current Visit: Yes Status: Acute Code(s): S32.010A - WEDGE COMPRESSION FRACTURE OF FIRST LUMBAR VERTEBRA, INIT SNOMED Code(s): 867518939 (8) Intractable low back pain Current Visit: Yes Status: Acute Code(s): M54.59 - OTHER LOW BACK PAIN SNOMED Code(s): 38612598304752878 Plan: Plan: 1. Patient has had intractable uncontrolled lumbosacral pain since Thursday morning, 06/11/2024, without injury. She is not experiencing lower extremity weakness or radiculopathy bilaterally. Her pain stays at the lumbosacral junction and radiates across to her lower spine. She does not have upper lumbar pain. Reviewing of lumbar CT imaging shows evidence of L1 compression fracture deformity of indeterminate age. Patient has a history of previous lumbar fracture. On physical examination the patient does not have any pain with palpation of her upper lumbar spine. She does have significant pain at her lumbosacral junction. She has significant pain with light palpation at her lumbosacral junction. Her symptoms are not well-controlled. Given the severity of her symptoms and history of previous fall with compression fracture deformity, we will currently plan to obtain lumbar MRI imaging for further evaluation. We will follow-up following completion of the MRI to discuss the MRI results and treatment options. If her L1 compression fracture deformity sh ows to be acute nature, we would plan for bracing. She has not had any injury and from a physical exam standpoint, she does not have any pain at this location of the fracture so we will currently wait for further imaging prior to obtaining bracing. 2. We will also plan to consult pain management for further treatment and evaluation. Examined as above. I reviewed the imaging that we have available as well. L1 compression fracture is of undetermined age and she reports prior fracture in the past. The gross appearance does not appear acute but further imaging will help us with the chronicity of the fracture. She has significant low back pain without neurologic deficit in her lower extremities. I think the MRI can help us in terms of her etiology of her symptoms as well as the compression fracture and we are awaiting the results of that. Will continue control her symptoms as best as possible. It is okay for her to try to mobilize if she is able. Pain management will see her as well. Will continue to follow her closely. Time with Patient: Greater than 30 (Including obtaining history, physical examination, reviewing of imaging, and dictation.)
[2024-06-13] MEDS: KETOROLAC 15 MG/ML 1 ML VIAL IVP PRN (18:03)
[2024-06-13 18:22] LABS: Eosinophils # (M) 0.17 k/uL (0-0.7); Lymphocytes # (M) 2.02 k/uL (1.0-4.8); Monocytes # (M) 0.34 k/uL (0-1.0); Neutrophils # (M) 1.76 k/uL (1.3-7.7); Neutrophils % (M) 41 %; Nucleated Red Blood Cells 0 /100 WBC (0-0); Total Cells Counted 100
[2024-06-13 18:23] LABS: RBC Morphology Normal
[2024-06-13] MEDS ORDERED: BUTALB/APAP/CAFF 50-325-40MG TAB PO PRN (18:46)
[2024-06-13] MEDS: PANTOPRAZOLE 40 MG TABLET PO SCH (21:02)
[2024-06-13] MEDS: CITALOPRAM HYDROBROMIDE 20 MG TAB PO SCH (21:02)
[2024-06-13] MEDS: ATORVASTATIN 40 MG TAB PO SCH (21:02)
[2024-06-13] MEDS: buPROPion SR 100 MG TABLET.ER PO SCH (21:03)
[2024-06-13] MEDS: TOPIRAMATE 100 MG TAB PO SCH (21:03)
[2024-06-13] MEDS ORDERED: ONDANSETRON 4 MG/2 ML VIAL IVP PRN (21:40)
[2024-06-14] MEDS: SUMAtriptan succinate 50 MG TAB PO PRN (02:29)
--- NOTE | 2024-06-14 07:49 | P.PN ---
Progress Note - Text Progress Note Date: 06/14/24 The patient is seen and examined at bedside. She still complains of pain across her lower back. She is not having any chest pain or shortness of breath. She is not having any significant radiculopathy or weakness in her lower extremities. She has been afebrile overnight with stable vital signs Her exam does not change from yesterday. She has sustained dorsiflexion plantarflexion EHL at her lower extremities. Calves thighs soft nontender. She is difficulty moving due to the pain at her back. We have ordered an MRI and it is pending. CT scan was reviewed which shows a L1 compression deformity of uncertain etiology or age and chronicity Assessment and plan Intractable low back pain History of L1 compression deformity uncertain chronicity No evidence of neurologic compromise of the lower extremities The patient has a number of degenerative changes at her lumbar spine as well as a L1 compression deformity. The MRI will help delineate the chronicity of the L1 fracture. It may be chronic. Will have pain management see her as well. It is okay for her to try to mobilize with physical therapy. Will continue with pain control and management and await the MRI findings for further recommendations.
[2024-06-14] MEDS ORDERED: ALBUTEROL NEBULIZED 2.5 MG/3 ML INHALATION PRN (09:12)
[2024-06-14] MEDS ORDERED: ALPRAZolam 1 MG TAB PO PRN (09:12)
--- NOTE | 2024-06-14 09:27 | P.HPIM ---
History of Present Illness H&P Date: 06/14/24 Chief Complaint: back pain This is a 69-year-old female with past medical history significant for previous lumbar compression fracture deformity-level unknown, left total knee arthroplasty, neurologic disorder, DVT, hypothyroidism, multiple abdominal surgeries, anxiety, depression, obesity and multiple other medical issues presented to the ER with complaints of lower back pain/lumbosacral -radiating across ,without loss of bladder/bowel control. Reports she woke up on Thursday morning 06/11 in pain, exacerbated with minimal activity. Despite her pain medication regimen, pain continued to worsen. Denies any falls, injuries, trauma. Denies any numbness, tingling, weakness of bilateral lower extremities. Spine CT reporting cortical buckling of the L1 vertebral body suggesting compression fracture, correlation with MRI recommended. Mild to moderate degenerative changes of the spine. No significant spinal canal and neural foraminal stenosis visualized. Review of Systems ROS Statement: Those systems with pertinent positive or pertinent negative responses have been documented in the HPI. ROS Other: All systems not noted in ROS Statement are negative. Past Medical History Past Medical History: Deep Vein Thrombosis (DVT), Eye Disorder, Hyperlipidemia, Neurologic Disorder, Thyroid Disorder Additional Past Medical History / Comment(s): BILAT CATARACTS. MIGRAINES History of Any Multi-Drug Resistant Organisms: None Reported Past Surgical History: Section, Hernia Repair, Hysterectomy, Orthopedic Surgery, Tonsillectomy Additional Past Surgical History / Comment(s): COLONOSCOPY, knee Past Anesthesia/Blood Transfusion Reactions: No Reported Reaction Past Psychological History: Anxiety, Depression Smoking Status: Never smoker Past Alcohol Use History: None Reported Past Drug Use History: None Reported - Past Family History Father Family Medical History: Cancer Additional Family Medical History / Comment(s): colon cancer Brother(s) Family Medical History: Cancer Additional Family Medical History / Comment(s): breast Medications and Allergies Home Medications Medication Instructions Recorded Confirmed Type ALPRAZolam [Xanax] 1 mg PO BID PRN 02/19/16 06/13/24 History Atorvastatin [Lipitor] 40 mg PO HS 02/19/16 06/13/24 History Citalopram Hydrobromide [CeleXA] 40 mg PO HS 02/19/16 06/13/24 History Levothyroxine Sodium [Synthroid] 75 mcg PO DAILY 02/19/16 06/13/24 History Topiramate [Topamax] 100 mg PO BID 02/19/16 06/13/24 History ZOLMitriptan [Zomig] 5 mg PO DAILY PRN 02/19/16 06/13/24 History Albuterol Sulfate [Proventil Hfa] 2 puff INHALATION RT-Q4H PRN 10/22/17 06/13/24 History Butalb/APAP/Caff 50-325-40Mg 1 tab PO DAILY PRN 10/22/17 06/13/24 History [Fioricet 50-325-40] Omeprazole 20 mg PO HS 05/20/21 06/13/24 History HYDROcodone/APAP 5-325MG [[place] 1 tab PO QID PRN 06/13/24 06/13/24 History 5-325] Ibuprofen [Motrin] 800 mg PO TID PRN 06/13/24 06/13/24 History buPROPion HCL [Wellbutrin SR] 200 mg PO BID 06/13/24 06/13/24 History Allergies Allergy/AdvReac Type Severity Reaction Status Date / Time No Known Allergies Allergy Verified 06/13/24 16:06 Physical Exam Vitals: Vital Signs Temp Pulse Pulse Resp BP BP BP 06/14/24 07:00 97.7 F 86 17 126/73 06/14/24 02:00 98.3 F 83 18 139/81 06/13/24 20:00 97.3 F L 74 18 138/83 06/13/24 17:58 97.5 F L 71 18 118/66 06/13/24 17:15 98.1 F 72 20 120/76 06/13/24 16:22 98.1 F 76 22 126/79 06/13/24 11:23 97.9 F 60 18 109/65 Pulse Ox 06/14/24 07:00 94 L 06/14/24 02:00 85 L 06/13/24 20:00 95 06/13/24 17:58 95 06/13/24 17:15 99 06/13/24 16:22 99 06/13/24 11:23 96 Intake and Output 06/13/24 06/14/24 06/14/24 22:59 06:59 14:59 Other: Voiding Method Toilet # Voids 1 1 # Bowel Movements 1 Weight 90.718 kg PHYSICAL EXAM: VITAL SIGNS: [Reviewed] GENERAL: Alert and oriented x 3, sitting up on stretcher, no acute distress HEENT: Atraumatic, normocephalic conjunctivae normal. eyes normal. NECK: Supple, no JVD. No thyroid enlargement. No LNs CARDIOVASCULAR: S1, S2 regular.. No murmur RESPIRATION: Unlabored, equal air entry breath sounds diminished in the bases. No rhonchi or crackles. No bronchial breathing. BACK: Lower lumbar spine /lumbosacral tenderness. ABDOMEN: Soft, nontender . No guarding. no masses palpable. No ascites, No hepatosplenomegaly.Bowel sounds heard. LEGS: No edema. no swelling, no clubbing, no cyanosis, no calf tenderness. PSYCHIATRY: Alert and oriented X3, mood and affect normal. NERVOUS SYSTEM: Cranial N 2-12 grossly normal. Moves all 4 limbs. No focal deficits. Strength and sensation grossly intact. Skin: Warm and dry, no rash Results CBC & Chem 7: 06/13/24 16:14 06/13/24 16:14 Labs: Abnormal Lab Results - Last 24 Hours (Table) 06/13/24 06/13/24 Range/Units 16:14 16:14 Chloride 108 H (98-107) mmol/L Glucose 105 H (74-99) mg/dL ALT 45 H (4-34) U/L Urine Appearance Cloudy H (Clear) Urine Protein Trace H (Negative) Urine Bacteria Rare H (None) /hpf Hyaline Casts 10 H (0-2) /lpf Urine Mucus Many H (None) /hpf Thrombosis Risk Factor Assmnt - Choose All That Apply Each Risk Factor Represents 2 Points: Age 61-74 years Thrombosis Risk Factor Assessment Total Risk Factor Score: 2 Thrombosis Risk Factor Assessment Level: Low Risk Assessment and Plan Assessment: Intractable low back pain in patient, L1 vertebral body compression fracture suggested per CT, in a patient reporting history of lumbar compression fracture deformity-level unknown, possibly chronic, MRI pending Mild to moderate degenerative spine changes. History of left total knee arthroplasty History of neurologic disorder Hypothyroidism History of DVT Anxiety Depression Obesity, BMI 28 Plan: Continue on current medication regimen ,monitoring and symptomatic treatment. Evaluated by orthopedic spine. Patient has been cleared to ambulate with PT. pain management services consult in place with recommendations pending. MRI pending. The impression and plan of care has been dictated as directed. : I performed a history and examination of this patient, discussed the same with the dictator. I agree with the dictator's note ,documented as a scribe. Any additional findings or plans will be noted.
[2024-06-14] MEDS: LEVOTHYROXINE 75 MCG TAB PO SCH (09:53)
--- NOTE | 2024-06-14 12:18 | P.PAINCN ---
History of Present Illness - History of Present Illness 69-year-old pleasant lady who suddenly felt pain in the 2 days ago without any fall or trauma. Pain is located mostly in the midline and low back area. Patient says pain is there all the time intensity goes up to 10/10. Describes the pain as throbbing aching in character. Gets pain relief with medications only. Any movement increases the pain. Denies any sensory loss or motor weakness in lower extremities. Denies any bowel bladder dysfunction. She describes the pain as throbbing and aching in character. CT of lumbar spine shows L1 compression fracture. Patient is going for MRI of lumbar spine in about an hour. Past Medical History Past Medical History: Deep Vein Thrombosis (DVT), Eye Disorder, Hyperlipidemia, Neurologic Disorder, Thyroid Disorder Additional Past Medical History / Comment(s): BILAT CATARACTS. MIGRAINES History of Any Multi-Drug Resistant Organisms: None Reported Past Surgical History: Section, Hernia Repair, Hysterectomy, Orthopedic Surgery, Tonsillectomy Additional Past Surgical History / Comment(s): COLONOSCOPY, knee Past Anesthesia/Blood Transfusion Reactions: No Reported Reaction Past Psychological History: Anxiety, Depression Smoking Status: Never smoker Past Alcohol Use History: None Reported Past Drug Use History: None Reported - Past Family History Father Family Medical History: Cancer Additional Family Medical History / Comment(s): colon cancer Brother(s) Family Medical History: Cancer Additional Family Medical History / Comment(s): breast Medications and Allergies Home Medications Medication Instructions Recorded Confirmed Type ALPRAZolam [Xanax] 1 mg PO BID PRN 02/19/16 06/13/24 History Atorvastatin [Lipitor] 40 mg PO HS 02/19/16 06/13/24 History Citalopram Hydrobromide [CeleXA] 40 mg PO HS 02/19/16 06/13/24 History Levothyroxine Sodium [Synthroid] 75 mcg PO DAILY 02/19/16 06/13/24 History Topiramate [Topamax] 100 mg PO BID 02/19/16 06/13/24 History ZOLMitriptan [Zomig] 5 mg PO DAILY PRN 02/19/16 06/13/24 History Albuterol Sulfate [Proventil Hfa] 2 puff INHALATION RT-Q4H PRN 10/22/17 06/13/24 History Butalb/APAP/Caff 50-325-40Mg 1 tab PO DAILY PRN 10/22/17 06/13/24 History [Fioricet 50-325-40] Omeprazole 20 mg PO HS 05/20/21 06/13/24 History HYDROcodone/APAP 5-325MG [[place] 1 tab PO QID PRN 06/13/24 06/13/24 History 5-325] Ibuprofen [Motrin] 800 mg PO TID PRN 06/13/24 06/13/24 History buPROPion HCL [Wellbutrin SR] 200 mg PO BID 06/13/24 06/13/24 History Allergies Allergy/AdvReac Type Severity Reaction Status Date / Time No Known Allergies Allergy Verified 06/13/24 16:06 Physical Exam Vitals: Vital Signs Temp Pulse Pulse Resp BP BP BP 06/14/24 07:00 97.7 F 86 17 126/73 06/14/24 02:00 98.3 F 83 18 139/81 06/13/24 20:00 97.3 F L 74 18 138/83 06/13/24 17:58 97.5 F L 71 18 118/66 06/13/24 17:15 98.1 F 72 20 120/76 06/13/24 16:22 98.1 F 76 22 126/79 Pulse Ox 06/14/24 07:00 94 L 06/14/24 02:00 85 L 06/13/24 20:00 95 06/13/24 17:58 95 06/13/24 17:15 99 06/13/24 16:22 99 Intake and Output 06/13/24 06/14/24 06/14/24 22:59 06:59 14:59 Intake Total 118 Balance 118 Intake: Oral 118 Other: Voiding Method Toilet # Voids 1 1 # Bowel Movements 1 Weight 90.718 kg Did a limited physical exam because of patient's pain. Tenderness in the midline lumbar spine. Any movement of the lumbar spine causes increased pain. Lower extremity motor strength 5/5. Deep tendon reflexes 2+. Sensation to touch grossly intact. Rectal sphincter reflex deferred. Results CBC & Chem 7: 06/13/24 16:14 06/13/24 16:14 Labs: Abnormal Lab Results - Last 24 Hours (Table) 06/13/24 06/13/24 Range/Units 16:14 16:14 Chloride 108 H (98-107) mmol/L Glucose 105 H (74-99) mg/dL ALT 45 H (4-34) U/L Urine Appearance Cloudy H (Clear) Urine Protein Trace H (Negative) Urine Bacteria Rare H (None) /hpf Hyaline Casts 10 H (0-2) /lpf Urine Mucus Many H (None) /hpf Assessment and Plan Assessment: L1 compression fracture. Plan: My understanding, patient would be determined if candidate for surgery after MRI. Patient relates, she cannot take steroids in any form either oral or injectable because of severe psychiatric side effects. As lumbar epidural steroid injection cannot be considered, patient could continue current oral medications for pain control if not a candidate for surgery. PQRS Measure Charge Sheet Pain Comment: see MAR PQRS Narrative: Smoking Status Never smoker Blood Pressure [Left Arm] 126/73 Blood Pressure [Right Arm] 139/81 Blood Pressure 120/76 Pain Intensity 0 Pain Scale Used Numeric (1 - 10) Scale Used Numeric (1 - 10) Home Medications: Ambulatory Orders ALPRAZolam [Xanax] 1 mg PO BID PRN 02/19/16 Atorvastatin [Lipitor] 40 mg PO HS 02/19/16 Citalopram Hydrobromide [CeleXA] 40 mg PO HS 02/19/16 Levothyroxine Sodium [Synthroid] 75 mcg PO DAILY 02/19/16 Topiramate [Topamax] 100 mg PO BID 02/19/16 ZOLMitriptan [Zomig] 5 mg PO DAILY PRN 02/19/16 Albuterol Sulfate [Proventil Hfa] 2 puff INHALATION RT-Q4H PRN 10/22/17 Butalb/APAP/Caff 50-325-40Mg [Fioricet 50-325-40] 1 tab PO DAILY PRN 10/22/17 Omeprazole 20 mg PO HS 05/20/21 HYDROcodone/APAP 5-325MG [[place] 5-325] 1 tab PO QID PRN 06/13/24 Ibuprofen [Motrin] 800 mg PO TID PRN 06/13/24 buPROPion HCL [Wellbutrin SR] 200 mg PO BID 06/13/24
[2024-06-14] MEDS: ALPRAZolam 1 MG TAB PO PRN (14:22)
--- NOTE | 2024-06-14 15:19 | MR ---
EXAMINATION TYPE: MR lumbar spine wo con DATE OF EXAM: 06/14/2024 3:12 PM COMPARISON: CT. CLINICAL INDICATION: Female, 69 years old with history of intractable LBP, L1 fx; PHH, intractable LB P, L1 Fx TECHNIQUE: Multi planar, multi sequence imaging was performed utilizing: T1-weighted, T2-weighted, a nd turbo inversion recovery imaging of the lumbar spine. IV Contrast: mL (None, if empty) FINDINGS: Alignment: The lumbar vertebral bodies have preserved heights and alignment. Cord: The conus medullaris and the distal spinal cord appear unremarkable with regards to their signa l intensity and morphology. Bones/Discs: Moderate degeneration changes throughout the spine with osteophyte formation and facet j oint arthropathy. Intervertebral disc signal is maintained. No abnormal inversion recovery signal to suggest bony edema. Mild compression deformities of L1 vertebral body without bony edema. This suggests a chronic process . T12-L1: No evidence of significant spinal canal stenosis or neural foraminal stenosis. L1-L2: No evidence of significant spinal canal stenosis or neural foraminal stenosis. L2-L3: No evidence of significant spinal canal stenosis or neural foraminal stenosis. L3-L4: No evidence of significant spinal canal stenosis or neural foraminal stenosis. L4-L5: No evidence of significant spinal canal stenosis or neural foraminal stenosis. L5-S1: The disc has a rounded posterior morphology without significant spinal canal stenosis. Facet j oint arthropathy with mild bilateral neural foraminal stenosis. No significant spinal canal or neural foraminal stenosis in the remainder of the visualized levels. Other findings: No evidence for acute fracture in the spine. Moderate degeneration changes throughout spine. No evidence for significant spinal canal neural casandra inal stenosis. Partially visualized cystic structure possibly ovarian in the pelvis. Measuring at [address] 5.0 cm. IMPRESSION: 1. Cortical buckling of L1 vertebral body without bony edema suggesting chronic fracture. 2. No definitive evidence of disc herniation or significant spinal canal stenosis. 3. Moderate degeneration disc degeneration with associated osteoarthritic changes. 4. Partially visualized cystic structure possibly ovarian in the pelvis. Measuring at least 5.0 cm. Further evaluation with pelvic ultrasound recommended. [facility], , 06/14/2024 3:17 PM
--- NOTE | 2024-06-14 16:34 | US ---
EXAMINATION TYPE: US pelvic complete DATE OF EXAM: 06/14/2024 COMPARISON: NONE CLINICAL INDICATION: Female, 69 years old with history of cystic structure; Follow up to MRI has hx o f cyst since 2011 has increased in size. Partial hysterectomy. TECHNIQUE: Transabdominal (TA). Doppler imaging: Not performed. FINDINGS: EXAM MEASUREMENTS: Uterus: Surgically absent Endometrial Stripe: Surgically absent Right Ovary: Not visualized due to bowel gas. Left Ovary: 9.5 x 7.2 x 7.4 cm 1. Uterus: Surgically absent 2. Endometrium: Surgically absent 3. Right Ovary: Obscured by overlying bowel gas 4. Left Ovary: Cystic area 9.5 x 7.2 x 7.4 cm 5. Bilateral Adnexa: wnl 6. Posterior cul-de-sac: wnl IMPRESSION: Left adnexal cystic lesion with thin septation measuring up to 9.5 cm. Follow-up ultrasou nd in 6 months recommended to ensure stability. [facility], , 06/14/2024 4:32 PM
[2024-06-14] MEDS: HYDROcodone/APAP 5-325MG 1 EACH TAB PO PRN (17:34)
--- NOTE | 2024-06-15 09:00 | P.OBCN ---
History of Present Illness Consult date: 06/15/24 Reason for consult: ovarian cyst Chief complaint: Acute back pain History of present illness: The patient is a 69-year-old woman who is status post hysterectomy years ago presented to the hospital with increasing low back pain despite a pain management plan in place for ongoing low back pain and degenerative disc and j oint disease. She was thought to potentially have a compression fracture leading to some sciatic pain. She was seen by orthopedics who recommended an MRI. During imaging studies, there was thought to be a possible pelvic cystic structure which was incidentally noted. She underwent a pelvic ultrasound as result and was found to have a roughly 9 cm simple pelvic cystic structure with a single septation. On questioning, the patient has been aware of a simple pelvic mass which has been present for multiple years though she reports it has apparently gotten larger since last time was evaluated perhaps longer than 5 years ago. She otherwise has no specific gynecologic concerns. Obstetrical history: Noncontributory Gynecological history: Status post hysterectomy years ago. Otherwise as noted in history of present illness, with a cystic pelvic structure which has reportedly grown in size the last evaluated at least 5 years ago. Review of Systems Review of systems is confined to history of present illness. Past Medical History Past Medical History: Deep Vein Thrombosis (DVT), Eye Disorder, Hyperlipidemia, Neurologic Disorder, Thyroid Disorder Additional Past Medical History / Comment(s): BILAT CATARACTS. MIGRAINES History of Any Multi-Drug Resistant Organisms: None Reported Past Surgical History: Section, Hernia Repair, Hysterectomy, Orthopedic Surgery, Tonsillectomy Additional Past Surgical History / Comment(s): COLONOSCOPY, knee Past Anesthesia/Blood Transfusion Reactions: No Reported Reaction Past Psychological History: Anxiety, Depression Smoking Status: Never smoker Past Alcohol Use History: None Reported Past Drug Use History: None Reported - Past Family History Father Family Medical History: Cancer Additional Family Medical History / Comment(s): colon cancer Brother(s) Family Medical History: Cancer Additional Family Medical History / Comment(s): breast Medications and Allergies Home Medications Medication Instructions Recorded Confirmed Type ALPRAZolam [Xanax] 1 mg PO BID PRN 02/19/16 06/13/24 History Atorvastatin [Lipitor] 40 mg PO HS 02/19/16 06/13/24 History Citalopram Hydrobromide [CeleXA] 40 mg PO HS 02/19/16 06/13/24 History Levothyroxine Sodium [Synthroid] 75 mcg PO DAILY 02/19/16 06/13/24 History Topiramate [Topamax] 100 mg PO BID 02/19/16 06/13/24 History ZOLMitriptan [Zomig] 5 mg PO DAILY PRN 02/19/16 06/13/24 History Albuterol Sulfate [Proventil Hfa] 2 puff INHALATION RT-Q4H PRN 10/22/17 06/13/24 History Butalb/APAP/Caff 50-325-40Mg 1 tab PO DAILY PRN 10/22/17 06/13/24 History [Fioricet 50-325-40] Omeprazole 20 mg PO HS 05/20/21 06/13/24 History HYDROcodone/APAP 5-325MG [[place] 1 tab PO QID PRN 06/13/24 06/13/24 History 5-325] Ibuprofen [Motrin] 800 mg PO TID PRN 06/13/24 06/13/24 History buPROPion HCL [Wellbutrin SR] 200 mg PO BID 06/13/24 06/13/24 History Allergies Allergy/AdvReac Type Severity Reaction Status Date / Time No Known Allergies Allergy Verified 06/13/24 16:06 Exam Vital Signs Temp Pulse Resp BP BP Pulse Ox 06/15/24 06:55 98.5 F 89 17 114/66 95 06/15/24 02:00 98.7 F 91 17 101/63 95 06/14/24 20:00 98.2 F 99 17 130/73 96 06/14/24 13:50 98.4 F 87 17 134/74 93 L Intake and Output 06/14/24 06/15/24 06/15/24 22:59 06:59 14:59 Other: # Voids 2 2 In general, this is a well-developed, well-nourished white female in no acute distress. Her abdomen is nondistended, soft, nontender, and without any palpable masses. Her extremities are without any cyanosis, clubbing, or edema and are nontender to palpation bilaterally. Pelvic examination is deferred to the outpatient clinic. Results Result Diagrams: 06/13/24 16:14 06/13/24 16:14 Assessment and Plan Assessment: Cystic pelvic structure, approximately 9 cm Plan: Patient reports that the mass has been present for a number of years. As a result, this likely represents an incidental finding and is very unlikely to be the cause of her increasing back pain. Nevertheless, its size warrants evaluation and I have ordered an ova 1 test to determine the risk for potential malignancy and the acuity of having to consider removal. The test will likely take 5 to 7 days to return and I have suggested to the patient that she can follow-up with me as an outpatient after managing her current inpatient issues. She is in agreement with the plan and I will await the return of the laboratory data.
--- NOTE | 2024-06-15 09:05 | P.PN ---
Subjective Progress Note Date: 06/15/24 H&P Date: 06/14/24 Chief Complaint: back pain This is a 69-year-old female with past medical history significant for previous lumbar compression fracture deformity-level unknown, left total knee arthroplasty, neurologic disorder, DVT, hypothyroidism, multiple abdominal surgeries, anxiety, depression, obesity and multiple other medical issues presented to the ER with complaints of lower back pain/lumbosacral -radiating across ,without loss of bladder/bowel control. Reports she woke up on Thursday morning 06/11 in pain, exacerbated with minimal activity. Despite her pain medication regimen, pain continued to worsen. Denies any falls, injuries, traum a. Denies any numbness, tingling, weakness of bilateral lower extremities. Spine CT reporting cortical buckling of the L1 vertebral body suggesting compression fracture, correlation with MRI recommended. Mild to moderate degenerative changes of the spine. No significant spinal canal and neural f oraminal stenosis visualized. 06/15/24 lumbar spine MRI reported cortical buckling of L1 vertebral body without bony edema suggesting chronic fracture. No definitive evidence of disc herniation or significant spinal canal stenosis. Moderate degenerative disc degeneration with associated osteoarthritic changes. Partially visualized cystic structure possibly ovarian in the pelvis measuring at least 5 cm.Pelvic ultrasound reporting left ovary cystic area 9.5 x 7.2 x 7.4 cm increased in size since 2010-possibly contributing to her increased back pain. Yesterday, evaluated by pain management, apparently patient verbalized that she is unable to take steroids, therefore her recommending continuing current oral medications for pain control if not a candidate for surgery.. Objective - Vital Signs Vital signs: Vital Signs Temp 98.5 F 06/15/24 06:55 Pulse 89 06/15/24 06:55 Resp 17 06/15/24 06:55 BP 114/66 06/15/24 06:55 Pulse Ox 95 06/15/24 06:55 FiO2 Intake & Output 06/14/24 06/15/24 06/15/24 18:59 06:59 18:59 Intake Total 236 Balance 236 Intake: Oral 236 Other: # Voids 4 2 # Bowel Movements 0 - Exam PHYSICAL EXAM: VITAL SIGNS: [Reviewed] GENERAL: Alert and oriented x 3, sitting up on stretcher, no acute distress HEENT: Atraumatic, normocephalic conjunctivae normal. eyes normal. NECK: Supple, no JVD. No thyroid enlargement. No LNs CARDIOVASCULAR: S1, S2 regular.. No murmur RESPIRATION: Unlabored, equal air entry breath sounds diminished in the bases. BACK: Lower lumbar spine /lumbosacral tenderness. ABDOMEN: Soft, nontender . No guarding. +Bowel sounds. LEGS: No edema. no swelling, no clubbing, no cyanosis, no calf tenderness. PSYCHIATRY: Alert and oriented X3, mood and affect normal. NERVOUS SYSTEM: Cranial N 2-12 grossly normal.No focal deficits. Strength and sensation grossly intact. Skin: Warm and dry, no rash - Labs CBC & Chem 7: 06/13/24 16:14 06/13/24 16:14 Assessment and Plan Assessment: Intractable low back pain in patient, L1 vertebral body compression fracture suggested per CT, in a patient reporting history of lumbar compression fracture deformity-level unknown,MRI lumbar /spine suggesting chronic fracture Left adnexal cystic lesion with thin septation measuring up to 9.5 cm, increased in size since 2010, GUITAR TEACHER following Mild to moderate degenerative spine changes. History of left total knee arthroplasty History of neurologic disorder Hypothyroidism History of DVT Anxiety Depression Obesity, BMI 28 Plan: Continue on current medication regimen ,monitoring and symptomatic treatment. GUITAR TEACHER consulted regarding possible ovarian abnormality/ adnexal cystic lesion increased in size. Further review of MRI with recommendations as per orthopedic spine. The impression and plan of care has been dictated as directed. : I performed a history and examination of this patient, discussed the same with the dictator. I agree with the dictator's note ,documented as a scribe. Any additional findings or plans will be noted.
--- NOTE | 2024-06-15 11:46 | P.PN ---
Progress Note - Text Progress Note Date: 06/15/24 Orthopedic spine: History of present illness: Patient is a very pleasant 69-year-old female who is seen examined at the bedside for follow-up evaluation of her lumbar spine. Patient states on Thursday morning, 06/11/2024, she woke up in the morning with significant pain at the lumbosacral junction. Her pain had continued to worsen. She presented to the emergency department for further evaluation. She denied any injuries at that time. She continues to deny any lower extremity weakness or radiculopathy bilaterally. She does have some chronic difficulty with her left knee following a previous total knee arthroplasty. She had MRI imaging of the lumbar spine performed yesterday. Since her admission she does feel her pain is improving. She does continue have some pain at her lumbosacral junction but her pain is not as severe. She has less pain with palpation over her lumbosacral junction. She does not have any pain at the midline of her upper lumbar spine. She was seen and examined by pain management who discussed the possibility of injections. Patient states she is unable to proceed for the injections as she is unable to tolerate steroid medications oral or injected due to her psychiatric medication. She admits to history of previous lumbar compression fracture deformity multiple years ago but is unsure of the number. Lumbar MRI imaging shows evidence of chronic compression fracture deformity without evidence of acute fracture. Physical exam: Patient is awake, alert, and oriented 3 Vital signs stable Good chest excursion with deep inspiration and expiration Examination of lumbar spine reveals skin is intact with no abrasions, lacerations, or bruises; no erythema, purulence or signs of infection No pain with palpation of the upper lumbar spine Mild pain with palpation at the lumbosacral junction and the laterally bilaterally across the lumbosacral junction Dorsiflexion, plantarflexion, and extensor hallucis longus positive sustained bilaterally Lower extremity strength 5/5 bilaterally except for the left knee Patient is able to perform some good range of motion of her lower extremities independently while lying in bed Decreased range of motion of the left knee, chronic following left total knee arthroplasty Straight leg test negative bilateral lower extremities No signs or symptoms of DVT; no calf pain No pain with internal and external rotation of the hips bilaterally Neurovascularly intact Pertinent studies: MRI of the lumbar spine taken on 06/14/2024: No significant herniated nucleus pulposus, central canal stenosis, or foraminal stenosis throughout the lumbar spine; L4-5 disc bulge and facet spondylosis without significant stenosis; L1 chronic compression fracture deformity; no evidence of acute compression fracture deformity CT of the lumbar spine taken on 06/13/2024: L1 compression fracture deformity of indeterminate age there may be chronic as there is evidence of bridging osteophytic spurring between T12 and L1; overall alignment is adequate maintained; no significant degenerative disc disease Assessment: History of lumbar compression fracture deformity L1 chronic compression fracture deformity Intractable lumbosacral pain, improving L4-5 disc bulging and spondylosis without stenosis Chronic decreased range of motion of left knee following left total knee arthroplasty History of DVT Hyperlipidemia Neurologic disorder Thyroid disorder Plan: 1. Viktoria presented with intractable lumbosacral pain without injury. She continues denying lower extremity weakness or radiculopathy bilaterally. Her pain has been improving since her admission to the hospital with medications. Lumbar MRI imaging does not show evidence of any significant herniated nucleus pulposus, central canal stenosis, or foraminal stenosis. She does have evidence of chronic L1 compression fracture deformity. Her chronic L1 fracture is stable and does not need any specific treatment. There is not evidence of any new fracture. We discussed her MRI in significant detail. We are not currently planning for any surgical intervention as we do not have any indication which surgical intervention would provide any significant improvement of her symptoms. We would recommend her working through all conservative treatment options. She is unable to proceed forward with injections through pain management as she has difficulty with steroid medications injected or orally as they interfere with her psychiatric medications. We would recommend her continuing with medications as prescribed by medicine. We are not planning to prescribe narcotic medications or other medications at the time of discharge. Patient is cleared for discharge from an orthopedic spine standpoint. She may follow-up on a as needed basis in the outpatient setting. 2. Patient will continue to be seen and examined by medicine and will be discharged by medicine once cleared by medicine.
[2024-06-16 07:37] VITALS: BP 126/66; PULSE 85; RESP 18; TEMP 98.4
[2024-06-16] MEDS: ACETAMINOPHEN TAB 325 MG TAB PO PRN (08:38)
[2024-06-16] MEDS: IBUPROFEN 400 MG TAB PO PRN (10:44)
--- NOTE | 2024-06-16 20:50 | P.DS ---
Providers Date of admission: 06/13/24 15:56 Expected date of discharge: 06/16/24 Attending physician: Kennedy Nj Consults: 06/13/24 15:54 Consult Physician Urgent Consulting Provider: Donell Rehman Consult Reason/Comments: L1 compression fracture with intractable back pain Do you want consulting provider notified?: Yes 06/14/24 15:44 Consult Physician Routine Consulting Provider: Fabian William Consult Reason/Comments: abnormal lumbar MRI , suggestive cystic structure , possible ovarian Do you want consulting provider notified?: Yes Primary care physician: Kennedy Nj - Discharge Diagnosis(es) (1) Pelvic mass Status: Acute (2) Compression fracture of L1 lumbar vertebra Status: Acute (3) Hyperlipidemia Status: Acute (4) Intractable low back pain Status: Acute (5) Thyroid disorder Status: Acute Hospital Course: Patient was admitted to the hospital with intractable back pain she was seen by orthopedic spine Dr. Valdovinos and also incidental finding of a ovarian pelvic mass 9 cm so she was seen by Dr. Drew William. Patient was doing well third day pain was controlled without any use of any IV medication. Intervention was recommended for pain management however patient did not want to receive any injections with steroids. Patient will be discharged today she will follow-up all follow-up as directed. Plan - Discharge Summary Discharge Rx Participant: No New Discharge Prescriptions: New Acetaminophen Tab [Tylenol] 650 mg PO Q6HR PRN tab PRN Reason: Mild Pain Or Fever > 100.5 Continue Citalopram Hydrobromide [CeleXA] 40 mg PO HS Atorvastatin [Lipitor] 40 mg PO HS ALPRAZolam [Xanax] 1 mg PO BID PRN PRN Reason: Anxiety Topiramate [Topamax] 100 mg PO BID Levothyroxine Sodium [Synthroid] 75 mcg PO DAILY ZOLMitriptan [Zomig] 5 mg PO DAILY PRN PRN Reason: MIGRAINES Albuterol Sulfate [Proventil Hfa] 2 puff INHALATION RT-Q4H PRN PRN Reason: Shortness Of Breath Butalb/APAP/Caff 50-325-40Mg [Fioricet 50-325-40] 1 tab PO DAILY PRN PRN Reason: Migraine Headache buPROPion HCL [Wellbutrin SR] 200 mg PO BID Ibuprofen [Motrin] 800 mg PO TID PRN PRN Reason: Pain Omeprazole 20 mg PO HS HYDROcodone/APAP 5-325MG [[place] 5-325] 1 tab PO QID PRN PRN Reason: Pain Discharge Medication List ALPRAZolam [Xanax] 1 mg PO BID PRN 02/19/16 [History] Atorvastatin [Lipitor] 40 mg PO HS 02/19/16 [History] Citalopram Hydrobromide [CeleXA] 40 mg PO HS 02/19/16 [History] Levothyroxine Sodium [Synthroid] 75 mcg PO DAILY 02/19/16 [History] Topiramate [Topamax] 100 mg PO BID 02/19/16 [History] ZOLMitriptan [Zomig] 5 mg PO DAILY PRN 02/19/16 [History] Albuterol Sulfate [Proventil Hfa] 2 puff INHALATION RT-Q4H PRN 10/22/17 [History] Butalb/APAP/Caff 50-325-40Mg [Fioricet 50-325-40] 1 tab PO DAILY PRN 10/22/17 [History] Omeprazole 20 mg PO HS 05/20/21 [History] HYDROcodone/APAP 5-325MG [[place] 5-325] 1 tab PO QID PRN 06/13/24 [History] Ibuprofen [Motrin] 800 mg PO TID PRN 06/13/24 [History] buPROPion HCL [Wellbutrin SR] 200 mg PO BID 06/13/24 [History] Acetaminophen Tab [Tylenol] 650 mg PO Q6HR PRN tab 06/16/24 [Rx] Follow up Appointment(s)/Referral(s): Kennedy Nj DO [Primary Care Provider] - 1 Week Fabien Rodriguez PAC [PHYSICIAN LAB[employer]ER [employer]] - As Needed (Patient may follow-up with Fabien Rodriguez PA-C or Dr. Jem Rehman at [facility] on an as needed basis following discharge. ) Fabian William MD [STAFF PHYSICIAN] - 2 Weeks (Call officefor a follow up regarding blood test of ovary. ) Patient Instructions/Handouts: Ovarian Cyst (GEN) Discharge Disposition: HOME SELF-CARE
== END 2024-06-16 13:56 | disposition home or self-care (01) ==
LOC: EC 11:21 → 6NMEDSUR 15:56
PROVIDERS: ADMIT Family Medicine; ATTEND Family Medicine
DX: M48.56XA Collapsed vertebra, not elsewhere classified, lumbar region, initial encounter for fracture (principal); M51.26 Other intervertebral disc displacement, lumbar region; M47.816 Spondylosis without myelopathy or radiculopathy, lumbar region; R19.00 Intra-abdominal and pelvic swelling, mass and lump, unspecified site; E03.9 Hypothyroidism, unspecified; F41.9 Anxiety disorder, unspecified; F32.A Depression, unspecified; E78.5 Hyperlipidemia, unspecified; E66.9 Obesity, unspecified; Z68.28 Body mass index [BMI] 28.0-28.9, adult; Z86.718 Personal history of other venous thrombosis and embolism; Z96.652 Presence of left artificial knee joint; Z79.52 Long term (current) use of systemic steroids; Z79.82 Long term (current) use of aspirin; Z79.890 Hormone replacement therapy; Z79.899 Other long term (current) drug therapy
CPT/HCPCS: 96376 ×4; 96374; 96375; 99284; 80053; 85025; 81001; 76856; 72131; 72148; G0378 ×4; J2360; J3360; S0106 ×4; J1171 ×2; J1885 ×3

== ENCOUNTER → 2024-10-10 | Outpatient (CLI) | payer MEDICARE ==
--- NOTE | 2024-10-10 07:48 | BD ---
EXAMINATION TYPE: Axial Bone Density DATE OF EXAM: 10/10/2024 CLINICAL HISTORY: 69 years old Female. ICD-10 CODE: R10.11 RUQ PAIN R10.31 RLQ PAIN , Additional His tory: Height: 69 Weight: 220 FRAX RISK QUESTIONS: History of Fracture in Adulthood: yes Secondary Osteoporosis: 3. Menopause before 45: unknown RISK FACTORS HISTORY OF: Spine Fracture: lumbar fx When: 2024 MEDICATIONS: Thyroid Medications: Which medication: Synthroid How Long: about 30 years EXAM MEASUREMENTS: Bone mineral densitometry was performed using the [employer] System. Bone mineral density about the R hip (g/cm2): 0.973 Bone mineral density about the L hip (g/cm2): 0.944 T Score values are as follows: -----R Neck: -1.0 -----L Neck: -1.2 -----R Total: -0.3 -----L Total: -0.5 Z Score values are as follows: -----R Neck: 0.0 -----L Neck: -0.2 -----R Total: 0.4 -----L Total: 0.2 First dexa at [facility] FRAX%s: The graph provided illustrates a 14.5% chance for a major osteoporotic fx and a 1.8% chance f or the hips probability for fx in 10 years time. IMPRESSION: Osteopenia (T Score between -2.5 and -1). There is slightly increased risk of fracture and the patient may be considered for treatment. Re-Screen 2-5 years. NOTE: T-SCORE=SD OF THE YOUNG ADULT MEAN. [facility], , 10/10/2024 7:46 AM
== END | disposition home or self-care (01) ==
LOC: RADBDWWP 07:21
PROVIDERS: ATTEND Family Medicine
DX: M85.89 Other specified disorders of bone density and structure, multiple sites (principal); Z78.0 Asymptomatic menopausal state
CPT/HCPCS: 77080